=== PATIENT | female | born 1930 | race Caucasian/White ===

== ENCOUNTER 2017-01-29 17:42 | Inpatient (IN) | payer MEDICARE, OTHER ==
[~2017-01-29] VITALS: Ht 162.6 cm; Wt 45.7 kg
--- NOTE | ~2017-01-29 | OP ---
PATIENT NAME: MARY SNEED MEDICAL RECORD: [id number] :32 LOCATION:D.M2 D.2129 ADMISSION DATE:01/30/17 SURGEON: SHANTA VÁZQUEZ MD DATE OF OPERATION: 01/30/2017 PREOPERATIVE DIAGNOSIS: Right femoral neck fracture. POSTOPERATIVE DIAGNOSIS: Right femoral neck fracture. PROCEDURE PERFORMED: Right femoral neck fracture pinning. SURGEON: Royal Vázquez MD ANESTHESIA: General. CONDITION: She tolerated the procedure well, was transferred to the recovery room in stable condition. INDICATIONS: This is a pleasant 86-year-old female, who had a fall several days ago, presents with a nondisplaced right femoral neck fracture. We discussed the options and felt like it would be best to go ahead and pinned it. I discussed this with her family, they understood. We discussed blood loss, scar, pain, failure of the pinning, collapse of the femoral head and they understood and wished to proceed. OPERATIVE REPORT: The patient was taken to the operating room and placed in supine position. General anesthesia was obtained. She was placed on the fracture table with her right leg in the up and elevated position. The left leg in the down position, no traction or tension was placed bilaterally. C-arm was brought in and verified that we can see the AP and Lateral of the right hip. I then had her prepped in a standard fashion and drape was placed. She did have receive Ancef per protocol. I made a small incision laterally. This was taken down. Four pins were placed into her hip, 4 screws were placed, 3 of them are of washers. This had good apposition of the fracture, good contact and felt like she had maintained to good position. I therefore copiously irrigated and closed her IT band ____ with #1 Vicryl, then 2-0 Vicryl, then 3-0 Prolene, half inch Steri-Strips. She was awakened and transferred to recovery room in stable condition, having tolerated the procedure well. TRANSINT:[id number] Voice Confirmation ID: [id number] DOCUMENT ID: [id number] SHANTA VÁZQUEZ MD CC: [id number] DICTATION DATE: 01/30/17 1211 GLASS BELT SANDER: 01/30/17 1322 ADM IN [id number] [place] [address]
[2017-01-30] VITALS (7 sets, daily range): BP systolic 118–156; BP diastolic 63–89; BMI 16.6
[2017-01-30 06:06] LABS: BASOPHILS 0 % (0-2); EOSINOPHILS 1.7 % (0-7); HEMATOCRIT 32.9 % (36.0-48.0); HEMOGLOBIN 10.5 g/dL (12-16); IMMATURE GRANULOCYTES 0.4 % (0-5); LYMPHOCYTES 17.5 % (15-50); MCH 31.7 pg (26.0-34.0); MCHC 31.9 g/dL (31.0-37.0); MCV 99.4 fL (80.0-100.0); MEAN PLATELET VOLUME 9.7 fL (7.4-10.4); MONOCYTES 16.3 % (2-11); NEUTROPHILS 64.1 % (40-80); PLATELET COUNT 294 10x3/uL (130-400); RBC 3.31 10x6/uL (4.00-5.40); RDW 14.9 % (11.5-14.5); WBC 4.7 10x3/uL (4.8-10.8)
--- NOTE | 2017-01-30 06:08 | NUR ---
0100 PT ADMITTED TO ROOM 2128 VIA EMS FROM [facility]. ALERT/ORIENTED. ACCOMPANIED BY HER DAUGHTER. ADMISSION HISTORY AND ASSESSMENT INITIATED. HOME MEDS REVIEWED. PT IS CONFUSED, FORGETTING WHERE SHE IS, TIME AND SITUATION. TELLS NURSE SHE FELL IN THE STORE AND FAMILY MEMBER SAYS SHE FELL AT HOME. PT CURRENTLY LIVES WITH HER SPOUSE AND IN HOME CAREGIVERS. PT TRANSFERRED TO BED WITH NO DIFFICULTY. INSTRUCTED ON BED REST AND NPO UNTIL SEEN BY DR VÁZQUEZ THIS AM. 0300 PT RESTING, FAMILY X 1 AT BEDSIDE. NO DISTRESS. SR PER TELEMETRY. CPOC. 0500 CONTINUES TO SLEEP. HAVE ORDERED AM LABS FOR DR VÁZQUEZ TO HAVE FRESH LABS FOR IF HE DOES DO SURGERY TODAY. PT HAS PIV TO RIGHT HAND AND RIGHT CHEST WALL HEMOSPLIT FOR HER DIALYSIS DAYS. SHE LAST DIALYZED ON TUESDAY. CPOC. CALL LIGHT IN REACH.
[2017-01-30] MEDS ORDERED: ZANTAC150 MG PO (06:18)
[2017-01-30] MEDS ORDERED: PROTONIX40 MG PO (06:18)
[2017-01-30] MEDS ORDERED: LIPITOR20 MG PO (06:18)
[2017-01-30] MEDS ORDERED: METOPROLOL TART25 MG PO (06:19)
[2017-01-30] MEDS ORDERED: RANEXA500 MG PO (06:19)
[2017-01-30] MEDS ORDERED: BRILINTA90 MG PO (06:20)
[2017-01-30] MEDS ORDERED: RENVELA800 MG PO (06:20)
[2017-01-30] MEDS ORDERED: LASIX80 MG PO (06:21)
[2017-01-30 06:28] LABS: ALBUMIN 2.1 g/dL (3.4-5.0); ANION GAP 7.5 mmol/L (8-16); APTT 32.1 SECONDS (22.8-39.4); BILIRUBIN - TOTAL 0.45 mg/dL (0.2-1.3); CALCIUM 8.8 mg/dL (8.5-10.1); CARBON DIOXIDE 30.6 mmol/L (21.0-32.0); CREATININE - SERUM 2.1 mg/dL (0.6-1.3); INR 1.07 (0.85-1.17); POTASSIUM - SERUM 4.1 mmol/L (3.5-5.1); PROTEIN - SERUM 4.8 g/dL (6.4-8.2); PROTIME 13.7 SECONDS (11.6-15.0)
--- NOTE | 2017-01-30 07:00 | NUR ---
RECEIVED REPORT. ASSUMED CARE OF PATIENT. RESTING WITH EYES CLOSED. EASILY AROUSED. RESP EVEN AND UNLABORED. ORIENTED TO NAME AND SITUATION. NIECE AT BEDSIDE. DENIES NEEDS. REPORTS PAIN 3/10 TO RIGHT LEG. RIGHT LEG NOTED TO BE SHORTER AND INTERNALLY ROTATED WHEN LYING IN SUPINE POSITION. CALL LIGHT WITHIN REACH. DENIES NEEDS. NO DISTRESS.
--- NOTE | 2017-01-30 09:22 | NUR ---
CONSENTS SIGNED AND PLACED ON CHART.
--- NOTE | 2017-01-30 10:33 | NUR ---
PATIENT LEFT FOR SURGERY VIA BED AT THIS TIME. NO DISTRESS UPON LEAVING UNIT.
--- NOTE | 2017-01-30 12:47 | NUR ---
RECEIVED PATIENT BACK TO ROOM VIA BED. PATIENT WITH EYES CLOSED, EASILY AROUSED. 154/71. CALL LIGHT PLACED WITHIN REACH. BED TO LOWEST POSITION. BOX ALARM ATTACHED TO PATIENT. PERIPHERAL PULSES PATENT. NO DRAINAGE OR BLEEDING FROM DRESSING TO RIGHT HIP. PATIENT STATES SHE IS NOT HUNGRY AT THIS TIME. REMAINS SLEEPY FROM PAIN MEDICATION. NO DISTRESS.
--- NOTE | 2017-01-30 16:03 | NUR ---
EYES CLOSED. EASILY AROUSED. FAMILY AT BEDSIDE. PERIPHERAL PULSES 2+, NO DRAINAGE OR BLOOD NOTED TO DRESSING. CALL LIGHT WITHIN REACH. NO DISTRESS.
--- NOTE | 2017-01-31 01:36 | NUR ---
0100 CALLED TO PT'S ROOM BY COTTON WEIGHER OPERATOR, NOTED THAT HER IV WAS ALMOST OUT. ATTEMPTED TO SALVAGE EXISTING IV, BUT IT WAS TOO TWISTED AND ALSO THEIR WAS EVIDENCE OF INFILTRATION INTO THE SKIN SURROUNDING THE SITE. REMOVED IV. ATTEMPTS X 3 BY THIS NURSE WITH NO SUCCESS TO OBTAIN ANOTHER IV. WANTING TO GIVE PT NEEDED IV PAIN MED FOR HER RIGHT HIP. CALLED SECOND NURSE, LISSET LUONG AND SHE ATTEMPTED AND GOT A WORKING IV TO RIGHT A/C ON 3RD ATTEMPT. ADMINISTERED BUPRENEX 0.1MG AT 0130. POSITIONED PT ON HER LEFT SIDE AND ENCOURAGED HER TO TRY AND SLEEP. IVF AT KVO. WILL MONITOR. CALL LIGHT IN REACH. ALARM BOX ATTACHD TO PT.WILL MONITOR.
[2017-01-31 03:23] VITALS: BP 123/60
[2017-01-31 06:17] LABS: HEMATOCRIT 36.4 % (36.0-48.0); HEMOGLOBIN 11.1 g/dL (12-16); MCH 30.8 pg (26.0-34.0); MCHC 30.5 g/dL (31.0-37.0); MCV 101.1 fL (80.0-100.0); MEAN PLATELET VOLUME 9.8 fL (7.4-10.4); RBC 3.6 10x6/uL (4.00-5.40); RDW 14.7 % (11.5-14.5)
[2017-01-31 06:26] LABS: WBC 6.2 10x3/uL (4.8-10.8)
--- NOTE | 2017-01-31 07:30 | NUR ---
ASSESSMENT COMPLETED.TELEMERTY SHOWS SR. PT IS RAM[place]. RT HIP WITH DRSG DRY AND INTACT. PT HAS A RIGHT CHEST HEMISPLIT AND A IV TO RIGHT AC. PT IS DISORIENTED. FAMILY AT BEDSIDE. BOX ALARM ON.
[2017-01-31 08:33] VITALS: BP 141/48
[2017-01-31 10:02] LABS: ANION GAP 13.5 mmol/L (8-16); CARBON DIOXIDE 27.5 mmol/L (21.0-32.0); CREATININE - SERUM 2.4 mg/dL (0.6-1.3)
--- NOTE | 2017-01-31 10:32 | NUR ---
TO DIAYLSIS PER BED
--- NOTE | 2017-01-31 11:00 | NUR ---
TO DIAYSIS IN STABLE CONDITION
--- NOTE | 2017-01-31 14:36 | NUR ---
PT HAD HEMODIALYSIS IN SUITE, TRANSFERRED VIA BED. PT AWAKE, BUT EXTREMELY CONFUSED. MADE A FEW ATTEMPTS TO ORIENT HER. ACCESSED R CHEST HEMISPLIT USING ASEPTIC TECHNIQUE. GOOD BLOOD FLOW WITH CATH. START TIME 1036, STOP TIME 1340. DECREASED UF GOAL PT B/P DROPPING. TOTAL UF 1000.
[2017-01-31 15:03] VITALS: Ht 162.6 cm; Wt 45.7 kg
[2017-01-31 16:00] VITALS: BP 133/53
--- NOTE | 2017-01-31 19:35 | NUR ---
RECIEVED SHIFT REPORT. PT IS LYING IN BED. PT IS ALERT AND ORIENTED BUT DOES HAVE SOME CONFUSION TO PLACE AND SITUATION. HEMISPLIT TO RIGHT CHEST PATENT. IV TO RIGHT AC PATENT AND SALINE LOC. DRESSING TO RIGHT HIP C/D/I. PT STATES PAIN IS 5/10. NO NEEDS ARE VERBALIZED AT THIS TIME. VISITOR IS AT THE BEDSIDE. WILL CONTINUE TO MONITOR. SIDE RAILS ARE UP X 2. BED IS IN LOWEST POSITION. BOX ALARM IS ON FOR SAFETY. CALL LIGHT IS WITHIN REACH.
--- NOTE | 2017-01-31 19:45 | NUR ---
LYING QUIETLY. FAMILY AT BEDSIDE. WILL MONITOR
[2017-01-31 20:10] VITALS: BP 91/43
--- NOTE | 2017-01-31 21:31 | NUR ---
SHIFT ASSESSMENT COMPLETED. NIGHT MEDS GIVEN WITH NO PROBLEMS. NO NEEDS ARE VOICED. VISITOR AT BEDSIDE. WILL MONITOR. SIDE RAILS X 2. BED LOW. BOX ALARM ON. CALL LIGHT IN REACH.
[2017-02-01] VITALS (7 sets, daily range): BP systolic 97–125; BP diastolic 45–78
[2017-02-01 05:57] LABS: HEMATOCRIT 35.1 % (36.0-48.0); HEMOGLOBIN 10.7 g/dL (12-16); MCH 30.7 pg (26.0-34.0); MCHC 30.5 g/dL (31.0-37.0); MCV 100.9 fL (80.0-100.0); MEAN PLATELET VOLUME 9.8 fL (7.4-10.4); RBC 3.48 10x6/uL (4.00-5.40); RDW 14.7 % (11.5-14.5); WBC 6.6 10x3/uL (4.8-10.8)
[2017-02-01 06:15] LABS: ANION GAP 9.7 mmol/L (8-16); CALCIUM 8.4 mg/dL (8.5-10.1); CARBON DIOXIDE 31.8 mmol/L (21.0-32.0); CREATININE - SERUM 1.9 mg/dL (0.6-1.3)
[2017-02-01 06:23] LABS: POTASSIUM - SERUM 3.5 mmol/L (3.5-5.1)
[2017-02-01 08:20] LABS: HEPATITIS C ANTIBODY <0.1 (0.0-0.9)
--- NOTE | 2017-02-01 08:21 | NUR ---
AM ROUNDS - PT IS AWAKE WITH FEMALE FAMILY MEMBER AT BEDSIDE. C/O RIGHT HIP PAIN. BOX ALARM ATTACHED AND WORKING. MONITOR SHOWING SR, HR 98. WILL CONTINUE TO MONITOR.
--- NOTE | 2017-02-01 12:53 | NUR ---
Patient Name: MARY SNEED Admission Status: Elective Accout number: [id number] Admission Date: 01-30-2017 : 1930 Admission Diagnosis: Attending: [place] Current LOS: 2 Anticipated DC Date: TO BE DETERMINED Planned Disposition: Inpatient Rehab Primary Insurance: MEDICARE A & B PLANNED EXTERNAL PROVIDER: [facility] INPATIENT REHAB Discharge Planning Comments: * Is the patient Alert and Oriented? Yes 0 * How many steps to enter\\exit or inside your home? NONE 0 * [facility] [place] [facility] * [facility] [place] [facility] * Preadmission Environment Home with Family 0 * ADLs Partial Dependent 0 * Partial ADLs (Assistance needed) Bathing Dressing Eating Medication Management Toileting 0 * Equipment Cane Oxygen Wheelchair 0 * Other Equipment HOME AND PORTABLE OXYGEN [facility] - MEDICAL EQUIPMENT PROVIDER 0 * List name and contact numbers for known caregivers / representatives who currently or will assist patient after discharge: DANIELE ROSS/LIGIA, 0 * Community resources currently utilized Other Private Duty Care 0 * Please name any agencies selected above. OUTPATIENT DIALYSIS, [facility], 1130, MEDICAID TRANSPORTATION ($15 PER TRIP) PRIVATE PAY 24 HOURS CAREGIVERS IN HOME 0 * Additional services required to return to the preadmission environment? Yes * Can the patient safely return to the preadmission environment? Yes 0 * Has this patient been hospitalized within the prior 30 days at any hospital? No 0 CM MET WITH PT IN ROOM TO DISCUSS DISCHARGE PLANNING AND NEEDS. PT REPORTS LIVING AT HOME DEPENDENT ON CAREGIVERS ARRANGED BY HALLIE. PT ADVISED CM TO SPEAK TO HALLIE REGARDING DISHARGE PLANNING HALLIE IS "THE EPITAXIAL REACTOR OPERATOR OF ME." IMPORTANT MESSAGE FROM MEDICARE PROVIDED AND DISCUSSED. CM CONTACT INFORMATION LET WITH PT AND CAREGIVER IN ROOM. CM RECEIVED CALL FROM HALLIE VIEIRA, . HALLIE REPORTS THAT PT HAS CANE, WHEELCHAIR, HOME AND PORTABLE OXYGEN [facility]. PT HAS PRIVATE PAY CAREGIVERS OR FAMILY AT ALL TIMES TO ASSIST WITH HER NEEDS AT HOME. PT TAKES THE MEDICAID TRANSPORTATION BUS TO AND FROM OUTPATIENT DIALYSIS AT [facility] IN [place], THEY CHARGE $15 PER TRIP. HALLIE REPORTS HAVING CAREGIVERS SITTING WITH PT AT THE HOSPITAL NOW AND PT HAS BEEN IN [facility] HOME REHAB IN THE PAST AND WANTED TO KNOW WHAT OTHER OPTIONS FOR REHAB PT MAY HAVE. CM DISCUSSED AVAILABILITY OF HOME HEALTH, REHAB SERVICES AND MEDICAL EQUIPMENT. HALLIE WOULD LIKE PT TO BE CONSIDERED FOR INPATIENT REHAB AT [facility]. FAMILY WILL PICK HER UP FOR DISCHARGE HOME. IMPORTANT MESSAGE FROM MEDICARE EXPLAINED. PT'S FAMILY WOULD LIKE PT CONSIDERED FOR INPATIENT REHAB AT [place]. CM WILL DISCUSS THIS POSSIBILITY WITH INPATIENT REHAB AND THE DOCTOR. CM TO FOLLOW AND ASSIST NEEDED. Manager Of Warehouse: Fan Guerrier
--- NOTE | 2017-02-01 16:05 | NUR ---
Rehab Note- Acute Rehab Prescreen Order received. Awaiting PT eval at this time. Have spoken with MAHESH Hernandez & stated the patient's POA would like for the patient to have an acute rehab stay prior to return home. Will follow the patient at this time. Thank you for this referral! Subha Thornton RN Clinical Liaison, [facility] Rehab/Sarah
--- NOTE | 2017-02-01 18:29 | NUR ---
PT IN BED ON LEFT SIDE. AWAKE. PT IS CONFUSED. BOX ALARM ON AND WORKING. WILL CONTINUE TO MONITOR
--- NOTE | 2017-02-01 19:45 | NUR ---
ASSESSMENT COMPLETE, PT RESTING ON LEFT SIDE, RESPERATIONS EVEN. IV TO RIGHT FOREARM WITH 1/2 NS AT KVO, SITE CLEAN AND AND DRY. FAMILY AT BED SIDE, BED LOW, CL IN REACH, WILL CONT TO MONITOR.
--- NOTE | 2017-02-01 23:31 | NUR ---
PROJECT MANAGER PROCESS DEVELOPMENT AT BEDSIDE FOR VS. NEEDS ADDRESSED AT THIS TIME. CALL LIGHT IN REACH. WILL CONT TO MONITOR.
[2017-02-02 03:42] VITALS: BP 131/69
--- NOTE | 2017-02-02 03:44 | NUR ---
RESTING WITH EYES CLOSED, RESPERATIONS EVEN, NO S/S DISTRESS NOTED.
--- NOTE | 2017-02-02 04:23 | NUR ---
PT CONFUSED OF SURROUNDINGS AND YELLING OUT FOR HELP. MOVED PT AND ALL OF HER BELONGINGS TO ROOM 2136 TO BE CLOSER TO THE NURSES STATION AND TO BE ABLE TO MONITOR CLOSER. NOTIFIED SWEET POTATO DISINTEGRATOR SOLOMAN AND EXPLAINED TO PT THAT FOR HER SAFETY WE ARE MOVING HER CLOSER TO THE FRONT OF THE UNIT.
[2017-02-02 06:52] LABS: BASOPHILS 0 % (0-2); EOSINOPHILS 1.2 % (0-7); HEMATOCRIT 29.8 % (36.0-48.0); HEMOGLOBIN 9.4 g/dL (12-16); IMMATURE GRANULOCYTES 0.2 % (0-5); LYMPHOCYTES 11.2 % (15-50); MCH 31.1 pg (26.0-34.0); MCHC 31.5 g/dL (31.0-37.0); MEAN PLATELET VOLUME 9.6 fL (7.4-10.4); MONOCYTES 12.1 % (2-11); NEUTROPHILS 75.3 % (40-80); PLATELET COUNT 321 10x3/uL (130-400); RBC 3.02 10x6/uL (4.00-5.40); RDW 14.4 % (11.5-14.5); WBC 5.6 10x3/uL (4.8-10.8)
[2017-02-02 07:00] LABS: MCV 98.7 fL (80.0-100.0)
[2017-02-02 07:05] LABS: ANION GAP 7.4 mmol/L (8-16); CALCIUM 8.7 mg/dL (8.5-10.1); CARBON DIOXIDE 32.6 mmol/L (21.0-32.0)
[2017-02-02 07:06] LABS: CREATININE - SERUM 2.4 mg/dL (0.6-1.3)
[2017-02-02 08:53] VITALS: BP 126/54
--- NOTE | 2017-02-02 10:49 | NUR ---
0715- AM ROUNDING- RECEIVED REPORT FROM CHIEF CLINICAL DIETITIAN NURSE TAMMY MERINO. PT IS CURRENTLY LAYING IN BED ON BACK WITH EYES OPEN RESTING. PT IS CONFUSED. ON MONITOR SHOWING SR, HR 69. DRESSING (CLEAN, DRY, AND INTACT) SEEN TO RIGHT HIP AREA. GIULIA HOSE SEEN TO LEFT LEG. RIGHT CHEST HEMOSPLIT SEEN. AVF SEEN TO LEFT ARM (RESERVE LEFT ARM). IV SEEN TO RIGHT FOREARM THAT HAS 1/2 NS RUNNING AT KVO (10CC). ON ROOM AIR. BEDREST ORDERED. NO NEED AT CURRENT TIME. WILL CONTINUE TO MONITOR AND CONTINUE WITH PLAN OF CARE.
[2017-02-02 12:48] VITALS: BP 113/49
--- NOTE | 2017-02-02 13:21 | NUR ---
Patient Name: MARY SNEED Encounter No: [id number] : 1930 Primary Insurance: MEDICARE A & B Anticipated DC Date: 02-02-2017 Planned Disposition: Inpatient Rehab External Planned Provider: [facility] DCP follow-up note: CM SPOKE TO PASTOR OF INPATIENT REHAB WHO REPORTS THEY CAN ACCEPT PT TODAY. CM SPOKE TO PT'S NIECE/POA, HALLIE QUIROZ, , WHO IS IN AGREEMENT WITH DISCHARGE TO REHAB TODAY AT [facility]. HALLIE WILL PROVIDE WHAT CLOTHING OR SUPPLIES PT MAY NEED, PLEASE FAX LIST TO HALLIE AT WORK, . CM NOTIFIED PASTOR OF INPATIENT REHAB. CHIPPER OPERATOR NURSE NOTIFIED. [facility] INPATIENT REHAB TO CONTACT MED 2 NURSE WITH ROOM NUMBER WHEN READY TO ACCEPT PT AND NURSE REPORT. Fan Guerrier, CASE MANAGEMENT
[2017-02-02] MEDS ORDERED: COLACE100 MG PO (13:58)
[2017-02-02] MEDS ORDERED: LOVENOX30 MG/0.3 SC (13:59)
--- NOTE | 2017-02-02 14:37 | NUR ---
CVL DRESSING CHANGED PER POLICY.
--- NOTE | 2017-02-02 14:58 | NUR ---
CALLED REPORT AND SPOKE WITH FEDE IN REHAB. GAVE REPORT. WILL CONTINUE TO MONITOR AND D/C PT TO REHAB ORDERED. WILL CONTINUE TO MONITOR.
--- NOTE | 2017-02-02 15:44 | NUR ---
D/C PT TO REHAB WITH IV TO RIGHT FOREARM INTACT. PT UNABLE TO SIGN D/C PAPERWORK DUE TO BEING CONFUSED. RIGHT CHEST HEMOSPLIT INTACT. HEART MONITOR RMEOVED AND RETURNED TO [place] WITH TELEMETRY.
== END 2017-02-02 15:47 | DRG 480 ==
LOC: D.M2 17:42
PROVIDERS: Internal Medicine; Internal Medicine Nephrology; ADMIT Orthopaedic Surgery Sports Medicine
PROC: 0QS604Z Reposition Right Upper Femur with Internal Fixation Device, Open Approach (ICD-10-PCS; principal; 2017-01-30 11:00)
PROC: 5A1D60Z (ICD-10-PCS; 2017-01-31)
DX: S72.001A Fracture of unspecified part of neck of right femur, initial encounter for closed fracture (principal); N18.6 End stage renal disease; I13.2 Hypertensive heart and chronic kidney disease with heart failure and with stage 5 chronic kidney disease, or end stage renal disease; W19.XXXA Unspecified fall, initial encounter; I50.9 Heart failure, unspecified; Z99.2 Dependence on renal dialysis; F03.90 Unspecified dementia, unspecified severity, without behavioral disturbance, psychotic disturbance, mood disturbance, and anxiety; D63.1 Anemia in chronic kidney disease

== ENCOUNTER 2017-02-02 15:38 | Inpatient (IN) | payer MEDICARE, OTHER ==
[~2017-02-02] VITALS: Ht 162.6 cm; Wt 36.9 kg
[~2017-02-02 15:38] MED LIST: BRILINTA90 MG PO; COLACE100 MG PO; LASIX80 MG PO; LIPITOR20 MG PO; LOVENOX30 MG/0.3 SC; METOPROLOL TART25 MG PO; PROTONIX40 MG PO; RANEXA500 MG PO; RENVELA800 MG PO; ZANTAC150 MG PO
[2017-02-02 18:59] VITALS: BP 117/55
--- NOTE | 2017-02-02 19:10 | NUR ---
OFF UNIT IN DIALYSIS.
--- NOTE | 2017-02-02 20:05 | NUR ---
RETURNED FROM DIALYSIS. GAVE PATIENT A WARMED BLANKET. FAMILY MEMBERS ARRIVED AND AFTER WARMING HER DINNER AND CHOPPING IT UP FOR HER THEY ASSISTED HER TO EAT AND TO MAKE HER MENU SELECTIONS.
[2017-02-02 21:16] VITALS: BP 117/55
--- NOTE | 2017-02-02 21:30 | NUR ---
ADMISSION ASSESSMENT AND HS MEDS COMPLETE. GAVE PATIENT NEWLY ORDERED ATIVAN 0.5MG PO FOR RESTLESSNESS MILD AGITATION DUE TO CONFUSION.
--- NOTE | 2017-02-02 21:45 | NUR ---
AFTER CALLING REALIZING THAT PATIENT'S GRANDDAUGHTER IS HER MPOA, CALLED HALLIE QUIROZ TO SEE IF SHE WANTED TO SIGN ADMISSION DOCUMENTS TELEPHONICALLY TONIGHT WITH 2 NURSES WITNESSING. DECLINED AND SAID SHE WILL SIGN THEM ALL TOMORROW.
--- NOTE | 2017-02-02 22:00 | NUR ---
PATIENT IN BED WITH COVERS THROWN OFF IF PLANNING ON ATTEMPTING OOB. RREMINDED HER SHE IS IN THE HOSPITAL FOR REHAB AFTE HER HIP SURGERY. PATIENT COVERED HERSELF UP AND ROLLED BACK OVER TO LEFT SIDELYING POSITION.
--- NOTE | 2017-02-02 22:45 | NUR ---
RESTING QUIETLY IN BED, ON LEFT SIDE. NO DISTRESS NOTED.
[2017-02-03] VITALS (7 sets, daily range): BP systolic 86–173; BP diastolic 58–82; Ht 162.6 cm; Wt 36.9 kg
--- NOTE | 2017-02-03 | NUR ---
RESTING QUIETLY IN BED ON RIGHT SIDE. NO DISCOMFORT NOTED.
--- NOTE | 2017-02-03 02:05 | NUR ---
RESTING IN BED ON BACK. NO DISTRESS EVIDENT.
--- NOTE | 2017-02-03 04:15 | NUR ---
ASSISTED PATIENT UP TO BSC SHE SAID SHE NEEDED TO URINATE. WAS UNABLE TO DO SO SHE HAD ALREADY BEEN INCONTINENT OF A LARGE AMOUNT OF URINE WHILE IN BED. CLEANSED PATIENT AND APPLIED FRESH PULL-UP BRIEF. REMOVED OLD BULKY DRESSING FROM STERI STRIPPED RIGHT HIP INCISION AND APPLIED FRESH BORDERED GAUZE DRESSING. NO CURRENT OR RECENT DRAINAGE FROM INCISION NOTED.
[2017-02-03 05:14] LABS: HEMATOCRIT 30.3 % (36.0-48.0); HEMOGLOBIN 9.9 g/dL (12-16); LYMPHOCYTES 23.8 % (15-50); MCH 31.7 pg (26.0-34.0); MCHC 32.7 g/dL (31.0-37.0); MCV 97.1 fL (80.0-100.0); MEAN PLATELET VOLUME 10.3 fL (7.4-10.4); NEUTROPHILS 64.3 % (40-80); PLATELET COUNT 327 10x3/uL (130-400); RBC 3.12 10x6/uL (4.00-5.40); RDW 15.8 % (11.5-14.5); WBC 6.4 10x3/uL (4.8-10.8)
--- NOTE | 2017-02-03 05:50 | NUR ---
RESTING QUIETLY IN BED AFTER RECENT BLOOD LAB REDRAW BY PHLEBOATMIST.
[2017-02-03 06:20] LABS: CALCIUM 8.8 mg/dL (8.5-10.1); CARBON DIOXIDE 31.7 mmol/L (21.0-32.0)
[2017-02-03 06:33] LABS: CREATININE - SERUM 1.7 mg/dL (0.6-1.3); POTASSIUM - SERUM 2.7 mmol/L (3.5-5.1)
--- NOTE | 2017-02-03 07:53 | NUR ---
SITTING UP EATING BREAKFAST. CALL LIGHT IN REACH
--- NOTE | 2017-02-03 07:56 | NUR ---
PATIENT ALERT/ORIENT TO SELF ONLY. CALL LIGHT WITHIN PATIENTS REACH. BED ALARM ON. DR. Malcom MCGRAW INTO SEE PATIENT. NEW ORDERS RECEIVED
--- NOTE | 2017-02-03 09:30 | NUR ---
PATIENT WET, INCONT OF URINE. PATIENT STATED SHE HAD TO PEE AGAIN. THIS NURSE HELPED PATIENT ONTO BEDSIDE COMMODE. PATIENT IS A TOTAL ASST ON ONE FROM BED TO COMMODE. PATIENT DID URINATE ON COMMODE. CLOTHES CHANGED BY THIS NURSE. REECE CARE GIVEN BY THIS NURSE. LINENS ON BED CHANGED BY THIS NURSE. PATIENT HELPED BACK INTO BED. PATIENT STATES SHE DOES NOT WANT TO EAT BREAKFAST. BREAKFAST LEFT AND SET UP IN FRONT OF PATIENT.
--- NOTE | 2017-02-03 12:00 | NUR ---
PATIENT SITTING UP IN CHAIR AT BEDSIDE TO EAT LUNCH. PATIENT IS VERY SLEEPY. THIS NURSE TRIED TO FEED PATIENT LUNCH. PATIENT WOULD ONLY TAKE A FEW BITES OF FOOD. WOUND NOT DRINK ANY LIQUIDS. THIS NURSE PUT PATIENT BACK TO BED.
--- NOTE | 2017-02-03 13:43 | NUR ---
PATIENTS NIECE HERE TO SIGN ADMISSION PAPER WORK.
--- NOTE | 2017-02-03 14:29 | NUR ---
PASTOR LEON PHLEBOTOMY MANAGER INTO SEE PATIENT. NEW ORDERS RECIEVED
--- NOTE | 2017-02-03 17:50 | NUR ---
PATIENTS DINNER SET UP IN FRONT OF PATIENT AFTER PATIENT REARRAGNED IN BED. NOT EATTING. EYES SHUT. THIS NURSE ASKED IF SHE CAN FEED PATIENT, HELP HER WITH HER SUPPER. PATIENT STATED "HELL NO". WILL TRY AGAIN TO SEE IF PATIENT WILL WAKE UP AND EAT OR SHE WILL LET NURSE FEED HER
--- NOTE | 2017-02-03 19:44 | NUR ---
PT RECEIVED IN BED WITH EYES CLOSED AND CHEST RISING. EASILY AROUSED TO VERBAL STIMULI. COMPLAINTS OF PAIN OR OTHER NEEDS NOTED AT THIS TIME. CALL LIGHT IN REACH. WILL CONTINUE TO OBSERVE.
--- NOTE | 2017-02-03 22:57 | NUR ---
PT IN BED WITH EYES CLOSED. RECIEVED SCHEDULED MEDICATIONS PER DEC. REQUEST ASSISTANCE TO BEDSIDE COMMODE. WHEN TRANSFERING TO COMMODE PT COMPLAINS OF PAIN. WHEN COMPLETE AND RETURNED TO BED PT STATES PAIN LEVEL 9/10 WITH PRN PAIN MEDICATION GIVEN WITH SCHEDULED MEDICATIONS. CONFUSED OF TIME AT THIS TIME. IN BED WITH EYES CLOSED AND CHEST RISING. CALL LIGHT IN REACH. WILL CONTINUE TO OBSERVE.
[2017-02-04 00:02] VITALS: BP 129/60
--- NOTE | 2017-02-04 01:50 | NUR ---
PT IN BED WITH EYES CLOSED AND CHEST RISING. NO SIGN/SYMPTOMS OF DISTRESS NOTED AT THIS TIME. CALL LIGHT IN REACH. WILL CONTINUE TO OBSERVE.
--- NOTE | 2017-02-04 03:57 | NUR ---
PT IN BED WITH EYES CLOSED AND CHEST RISING. CALL LIGHT PUSHED AND ASKED FOR REORIENTATION OF BED FUNCTIONS AND ASSIST TO BEDSIDE COMMODE. URINARY OUTPUT ONLY NOTED. ASSISTED BACK TO BED WITH MODERATE ASSIST. NO OTHER NEEDS MADE KNOWN. CALL LIGHT IN REACH. WILL CONTINUE TO OBSERVE.
[2017-02-04 06:14] VITALS: BP 128/64
--- NOTE | 2017-02-04 06:57 | NUR ---
PT IN BED WITH EYES CLOSED AND CHEST RISING AT THIS TIME. RECEIVED AM MEDICATIONS AND TOLERATED WELL. NO CONCERNS MADE KNOWN. CALL LIGHT IN REACH.
[2017-02-04 08:47] VITALS: BP 134/80
--- NOTE | 2017-02-04 11:55 | NUR ---
PATIENT ADMITTED TO REHAB FROM ACUTE FLOOR. DR. YISEL MONTANA IS PATIENT PCP , DR. VÁZQUEZ IS ORTHO. PATIENT USES [employer] IN [place] FOR HER DME. . SHE HAS DIALYSIS AT [facility] ON . SHE HAS O2, WHEELCHAIR AND A CANE. SHE ALSO HAS 24HOUR CARE AT HOME WITH HER SPOUSE. HER POA IS HALLIE QUIROZ [phone]. WILL CONTINUE TO FOLLOW WITH PATIENT
[2017-02-04 18:53] VITALS: BP 144/68
--- NOTE | 2017-02-04 18:58 | NUR ---
PT HAS HAD AN UNEVENTFUL DAY TODAY. SHE HAS BEEN ALERT AND CONFUSED. PT WENT TO DIALYSIS THIS AFTERNOON.
--- NOTE | 2017-02-04 19:35 | NUR ---
PT. IN BED WITH HOB UP FOR COMFORT WITH EYES CLOSED AND RESP. EVEN. PT. AWAKENS EASILY FOR ASSESSMENT. NO VOICED NEEDS AT THIS TIME. ASSISTED WITH REPOSITIONING AND CALL LIGHT WITHIN REACH.
--- NOTE | 2017-02-04 23:06 | NUR ---
PT. IN BED WITH HOB UP FOR COMFORT LYING ON HER LEFT SIDE. EYES CLOSED AND RESP. DEEP AND EVEN. CALL LIGHT WITHIN REACH.
[2017-02-05 00:15] VITALS: BP 133/62
--- NOTE | 2017-02-05 03:02 | NUR ---
PT. IN BED WITH HOB UP FOR COMFORT WITH EYES CLOSED AND RESP. EVEN. PT. AWAKENS EASILY I DISCONNECT HER IV AND FLUSH/LOCK IT. GAVE PT. DRINK OF WATER AT HER REQUEST. PT. HAS NO OTHER VOICED NEEDS. CALL LIGHT WITHIN REACH.
--- NOTE | 2017-02-05 03:03 | NUR ---
PT. IN BED LYING ON HER LEFT SIDE WITH HOB UP FOR COMFORT. EYES CLOSED AND RESP. EVEN. CALL LIGHT WITHIN REACH.
[2017-02-05 06:38] VITALS: BP 115/63
[2017-02-05 07:00] VITALS: BP 129/62
--- NOTE | 2017-02-05 07:00 | NUR ---
PT WAS RECEIVED IN BED AWAKE AND ORIENTED ONLY TO SELF AT THE BEGINNING OF THIS SHIFT. STABLE CONDITION OBSERVED. RT. FOREARM SL. NO SIGNS OR VOICED NEEDS AT THIS TIME. WILL BE MONITORING HER AND ASSISTING PRN WITH ADL'S. CALL LIGHT IS IN REACH.
[2017-02-05 15:19] VITALS: BP 123/62
--- NOTE | 2017-02-05 18:11 | NUR ---
PT HAD TO HAVE A NORCO AT NOON TODAY FOR COMPLAINT OF HER RT. HIP AFTER DOING THERAPY. PT. HAD TO BE GIVEN AN ATIVAN AT 1545 TODAY FOR BEING UPSET OVER THINKING HER NIECE HAD TAKEN ALL OF HER FURNITURE FROM HER HOUSE THAT SHE IS IN NOW. SHE THINKS THE HOSPITAL IS HER HOUSE AND HER FURNITURE IS MISSING. SHE IS COMPLETELY DELUSIONAL. THE NIECE WANTS THIS [facility] BY A PSYCHYATRIST. SHE ATE HER SUPPER THAT HER NIECE BROUGHT HER AND WENT ON TO BED AND WENT ASLEEP. MONITORING HER AND SHE IS RESTING SOUNDLY NOW.
[2017-02-05 19:00] VITALS: BP 118/59
--- NOTE | 2017-02-05 23:15 | NUR ---
PT RESTING, EYES CLOSED. BED LOW. CL IN REACH.
[2017-02-06 01:25] VITALS: BP 122/49
--- NOTE | 2017-02-06 01:25 | NUR ---
PT RESTING, EYES CLOSED. BED LOW. CL IN REACH.
--- NOTE | 2017-02-06 03:12 | NUR ---
PT RESTING, EYES CLOSED. BED LOW. CL IN REACH.
--- NOTE | 2017-02-06 03:13 | NUR ---
PT HS MEDS ADMINISTERED. PT REQ AND REC'D PRN ATIVAN AND PAIN MEDICATION. WCTM. BED LOW. CL IN REACH.
[2017-02-06 06:04] VITALS: BP 110/53
--- NOTE | 2017-02-06 07:00 | NUR ---
PT WAS RECEIVED IN BED WITH EYES CLOSED AT THE BEGINNING OF THIS SHIFT. NO SIGNS OF ANY DISCOMFORT OR DISTRESS. RESPIRATIONS EASY AND UNLABORED. CALL LIGHT IS IN HER REACH. 02 PER NC GOING AT 2L/MIN. HOB ELEVATED TO 35%. WILL BE MONITORING HER AND ASSISTING PRN ASSIST WITH ADL'S.
[2017-02-06 10:19] VITALS: BP 116/59
--- NOTE | 2017-02-06 18:41 | NUR ---
MISTAKE MADE ON THE LAST ENTRY NOTE. PT DOES NOT WEAR 02. SHE IS BREATHING ROOM AIR. PT. WAS GOTTEN UP TO WHEELCHAIR MIDMORNING. SHE ASKED FOR A PAIN PILL AROUND 10:50AM AND RECEIVED A NORCO 5MG AT THAT TIME. HER NIECE CAME FOR A VISIT BEFORE LUNCH. SHE ATE HER LUNCH AND WENT BACK TO BED FOR A NAP. SHE CONTINUES TO BE STABLE AND CALM.
--- NOTE | 2017-02-06 19:45 | NUR ---
PT BED LINENS AND CLOTHING CHANGED DUE TO INCONTINENCE OF URINE. PT ASSISTED TO BR WHERE SHE VOIDED CONCENTRATED URINE. PT BACK IN BED AND IS VERY UPSET THAT "TANO" ISN'T HERE. WCTM. BED LOW. CL IN REACH.
[2017-02-06 20:15] VITALS: BP 138/60
--- NOTE | 2017-02-06 20:40 | NUR ---
PT HS MEDS ADMINISTERED. PT DENIES NEEDS. BED LOW. CL IN REACH.
[2017-02-07 01:03] VITALS: BP 119/57
--- NOTE | 2017-02-07 01:22 | NUR ---
PT RESTING, EYES CLOSED. BED LOW. CLIN REACH.
[2017-02-07 06:05] VITALS: BP 141/65
[2017-02-07 07:18] LABS: BASOPHILS 0.2 % (0-2); EOSINOPHILS 1.1 % (0-7); HEMOGLOBIN 9.5 g/dL (12-16); IMMATURE GRANULOCYTES 0.3 % (0-5); LYMPHOCYTES 11.2 % (15-50); MCH 30.6 pg (26.0-34.0); MCHC 31.7 g/dL (31.0-37.0); MCV 96.8 fL (80.0-100.0); MEAN PLATELET VOLUME 9.9 fL (7.4-10.4); MONOCYTES 14.2 % (2-11); PLATELET COUNT 343 10x3/uL (130-400); RDW 13.8 % (11.5-14.5); WBC 6.3 10x3/uL (4.8-10.8)
[2017-02-07 07:29] LABS: CALCIUM 9.2 mg/dL (8.5-10.1); CARBON DIOXIDE 29.3 mmol/L (21.0-32.0)
[2017-02-07 07:59] LABS: ANION GAP 10.5 mmol/L (8-16); CREATININE - SERUM 2.4 mg/dL (0.6-1.3)
[2017-02-07 08:02] LABS: POTASSIUM - SERUM 2.8 mmol/L (3.5-5.1)
--- NOTE | 2017-02-07 08:45 | NUR ---
PATIENT WOKEN UP TO EAT BREAKFAST. PATIENT CALLED OUT IN PAIN WHEN PULLED UP IN BED ASST OF TWO. PRN PAIN MEDICATION GIVEN
--- NOTE | 2017-02-07 09:57 | NUR ---
DIALYSIS CORRDINATOR: PATHWAYS: [facility] Tue/Tue/Tue @ 10:30am. Medical records forwarded to the unit for their records. MAGI MCNULTY.
--- NOTE | 2017-02-07 09:57 | NUR ---
DR. Malcom MCGRAW INTO SEE PATIENT. NEW ORDERS RECEIVED
--- NOTE | 2017-02-07 10:12 | NUR ---
OCCUPATIONAL THERAPIST WORKING WITH PATIENT. HELPED PATIENT WITH SHOWER
[2017-02-07 11:49] VITALS: BP 121/54
--- NOTE | 2017-02-07 14:45 | NUR ---
DIALYSIS CLINIC CALLED AND STATED THAT WE COULD BRING PATIENT DOWN FOR DIALYSIS TREATMENT. REQUESTED PATIENT BE BROUGHT DOWN IN A BED. PATIENT TAKEN DOWN TO DIALYSIS IN BED ASST OF TWO FOR MOVING OF THE BED. CHART BROUGHT WITH PATIENT
--- NOTE | 2017-02-07 18:17 | NUR ---
EATING SUPPER. CALL LIGHT IN REACH
[2017-02-07 18:23] VITALS: BP 116/58
--- NOTE | 2017-02-07 18:33 | NUR ---
PATIENT BACK FROM DIALYSIS CLINIC. IN ROOM. HELPED UP IN BED TO EAT SUPPER.
[2017-02-07 19:18] VITALS: BP 121/54
--- NOTE | 2017-02-07 21:10 | NUR ---
PT REQ AND REC'D PRN PAIN MEDICATION AT THIS TIME WITH HS MEDS. PT ALSO GIVEN PRN ATIVAN FOR ANXIETY. PT HAS BEEN YELLING OUT "HELLO, HELLO. I'M ALL ALONE. HELP ME." ORIENTED PT TO PLACE AND SITUATION. PT DENIES FURTHER NEEDS. WCTM. BED LOW. CL IN REACH.
--- NOTE | 2017-02-07 23:49 | NUR ---
PT RESTING, EYES CLOSED. BED LOW. CL IN REACH.
[2017-02-08 00:35] VITALS: BP 112/57
[2017-02-08 05:53] VITALS: BP 130/68
--- NOTE | 2017-02-08 07:00 | NUR ---
PT WAS RECEIVED IN BED WITH EYES CLOSED AT THE BEGINNING OF THIS SHIFT. STABLE CONDITION OBSERVED. VITAL SIGNS; TEMP. 98.0, PULSE 87, RESP. 16, B/P 130/68, 02SAT. 98% ON ROOM AIR. NO SIGNS OF ANY DISCOMFORT OR DISTRESS SEEN. WILL BE MONITORING HER AND ASSISTING PRN WITH ADL'S. CALL LIGHT IS IN HER REACH.
[2017-02-08 08:20] LABS: APPEARANCE CLEAR (CLEAR); BACTERIA MODERATE /hpf (NONE SEEN); BILIRUBIN NEGATIVE (NEGATIVE); COLOR YELLOW (YELLOW); EPITHELIAL CELLS 0-5 /hpf (0-5); GLUCOSE NEGATIVE (NEGATIVE); KETONE NEGATIVE (NEGATIVE); LEUKOCYTE ESTERASE 2+ (NEGATIVE); NITRITE NEGATIVE (NEGATIVE); PROTEIN 1+ mg/dL (NEGATIVE); RED CELLS - URINE 0-5 /hpf (0-5); UROBILINOGEN NORMAL (NORMAL)
[2017-02-08 08:21] LABS: MUCUS <1+ /lpf (NONE SEEN)
[2017-02-08 08:54] LABS: BASOPHILS 0.2 % (0-2); EOSINOPHILS 0.8 % (0-7); HEMATOCRIT 30.3 % (36.0-48.0); HEMOGLOBIN 9.3 g/dL (12-16); IMMATURE GRANULOCYTES 0.2 % (0-5); LYMPHOCYTES 9.3 % (15-50); MCH 30.9 pg (26.0-34.0); MCHC 30.7 g/dL (31.0-37.0); MEAN PLATELET VOLUME 9.7 fL (7.4-10.4); MONOCYTES 10.2 % (2-11); NEUTROPHILS 79.3 % (40-80); PLATELET COUNT 355 10x3/uL (130-400); RBC 3.01 10x6/uL (4.00-5.40); RDW 13.8 % (11.5-14.5); WBC 6.6 10x3/uL (4.8-10.8)
[2017-02-08 08:56] LABS: MCV 100.7 fL (80.0-100.0)
[2017-02-08 09:03] LABS: ANION GAP 6.9 mmol/L (8-16); CALCIUM 9.5 mg/dL (8.5-10.1); CARBON DIOXIDE 34.4 mmol/L (21.0-32.0); CREATININE - SERUM 1.8 mg/dL (0.6-1.3)
[2017-02-08 09:05] LABS: POTASSIUM - SERUM 4.3 mmol/L (3.5-5.1)
--- NOTE | 2017-02-08 09:41 | RHP ---
PATIENT: MARY SNEED MEDICAL RECORD: [id number] ACCOUNT: [id number] LOCATION:[facility] [id number] : 32 ADMISSION DATE: 02/02/17 REHABILITATION HISTORY AND PHYSICAL EXAMINATION POST ADMISSION PHYSICIAN EXAMINATION DATE OF ADMISSION TO REHAB: 02/02/2017 ADMITTING DIAGNOSIS: Right femoral neck fracture, status post repair. HISTORY OF PRESENT ILLNESS: The patient is an 86-year-old female patient, who presents to rehab secondary to a right femoral neck fracture. She has got a history of end-stage renal disease, CHF and dementia. She chronically dialyzes on Tuesday, Tuesday and Tuesday. She is on hemodialysis for 3 years. She apparently fell at home prior to admit. She has pain in her right hip that is tender and increased with range of motion. She was able to walk prior to this fall, but is unable to ambulate. On admission, x-ray showed a nondisplaced right femoral neck fracture. After being cleared by nephrology, she went to the OR for right femoral neck pinning. Previously, she lived with her and was moderately independent with rolling walker. She is pleasantly confused, but follows commands. Currently, she is mod to max assist with ADLs and mobility. Plans to return home with her and the caregiver after rehab. She does have a left upper extremity fistula. She has poor balance and stability and will definitely need to work on this during her rehab stay. COMORBIDITIES: Include status post right femoral neck pinning, end-stage renal disease, hemodialysis, hypokalemia, CHF, hypertension, coronary artery disease, osteopenia. She has got a history of PTCA with stent placement in the past, history of NC, cecal cancer, anemia, frequent falls and dementia. PAST MEDICAL HISTORY: Significant for dementia. She has got a history of hypertension, NC in the past, coronary artery disease and history of cecal cancer. PAST SURGICAL HISTORY: Includes hysterectomy, cholecystectomy, carpal tunnel release and stent placement. ALLERGIES: No known drug allergies. CURRENT MEDICATIONS: Include Pepcid 20 mg daily, Protonix 40 mg daily. She is on Lovenox 30 mg subQ daily, Lipitor 20 mg daily, Ativan 0.5 mg q.6 hours p.r.n., Seroquel 25 mg b.i.d., Brilinta 90 mg b.i.d., Renagel 800 mg t.i.d. with meals, Ranexa 500 mg b.i.d., Lopressor 25 mg b.i.d., furosemide 80 mg b.i.d., Colace 100 mg b.i.d., and polyethylene glycol 17 grams in 8 ounces of water daily. HABITS: No alcohol or tobacco use. FAMILY HISTORY: Noncontributory. SOCIAL HISTORY: Once again, the patient hopes to return back home with her and caregiver. REVIEW OF SYSTEMS: GENERAL: Does complain of little weakness. HISTORY AND PHYSICAL [id number] MARY SNEED HEENT: Denies cold, cough, or congestion. CARDIOVASCULAR: Denies chest pain. PHYSICAL EXAMINATION: VITAL SIGNS: Stable, afebrile. GENERAL: A thin, elderly female, in no acute distress, alert upon exam. HEENT: Normocephalic, atraumatic. Mucosa moist. TMs appear shiny and mobile. NECK: Supple, with no lymphadenopathy. LUNGS: Clear at this time. HEART: Regular rate and rhythm. ABDOMEN: Benign. EXTREMITIES: Consistent with hip surgery. NEUROLOGIC: Consistent with dementia. She has some confusion, but is easily redirected. LABORATORY DATA: Her white count is 6.4, H&H 9.9 and 30.3 and platelet count 327. Admit sodium 139, potassium 2.7, BUN and creatinine of 23 and 1.7, blood sugar is noted to be 99. ASSESSMENT: This is an 86-year-old female patient, who presents secondary to right hip fracture, status post pinning of this. The patient has potential to make improvement. We instituted the following multidisciplinary therapies including, but not limited to physical, occupational, respiratory, speech, nutritional services, prosthetics and orthotics. Given her complex condition and risk for more complications, rehabilitation services cannot be provided at a low level of care such as a jail facility. PLAN: 1. Admit to [facility] rehab for intensive inpatient therapy to include the following disciplines: A. Physical therapy to improve gait, all transfer skills and bed mobility to a modified independent level. B. Occupational therapy to improve activities of daily living to a modified independent level. C. Case management to assist with discharge planning and placement options. D. Nutrition to assist with nutritional needs. E. Rehabilitation nursing to assist in monitoring the patient's underlying medical conditions and to assist with any type of bowel or bladder management. 2. The patient's current medication and medical care will be continued. 3. The patient will be placed on standard fall precautions. 4. We will watch her H&H closely. 5. We will discuss this patient during care team staff meeting this week. TRANSINT:[id number] Voice Confirmation ID: [id number] DOCUMENT ID: [id number] HISTORY AND PHYSICAL [id number] MARY SNEED SCOTT MD at 0941 CC: [id number] DICTATION DATE: 02/03/17 0744 CLOUD SECURITY ARCHITECT: 02/03/17 0856 ADM IN [facility] [address] [place] [address]
[2017-02-08 09:51] VITALS: BP 130/68
[2017-02-08 12:05] VITALS: BP 126/53
--- NOTE | 2017-02-08 13:05 | NUR ---
PT REQUESTED A PAIN PILL WHEN IN THERAPY THIS MORNING. SHE RECEIVED A NORCO 5MG TAB AT 11:45AM. SHE WAS PUT BACK TO BED AFTER THE MORNING THERAPY. SHE HAS BEEN RESTING WELL.
--- NOTE | 2017-02-08 13:29 | NUR ---
Nutrition Follow Up: Pt was asleep at the time of RD visit. Interview deferred. Pt is eating 51% meal avg on a regular diet. She is receiving Ensure with meals. Wt loss 9# since admit - likely r/t fluid. +BM 02/03/17. Labs reviewed. Meds noted including Lasix. Pt with fair po intake. Rec continue current diet. Rec consider an appetite stimulant. RD will continue to monitor pt progress.
[2017-02-08 18:25] VITALS: BP 124/63
--- NOTE | 2017-02-08 18:33 | NUR ---
PT HAD A SHOWER THIS AFTERNOON AFTER HAVING AN INCONTINENT EPISODE OF BOWEL AND URINE. BED LINENS CHANGED TOO.
--- NOTE | 2017-02-08 19:10 | NUR ---
ASSESSMENT PER FLOW SHEET, RIGH HEMOSPLIT INTACT WITH NO REDNESS OR EDEMA, PT ORIENTED TO PLACE AND TIME, DINNER TRAY REMOVED, FRESH H20 SERVED, PT DENIES NEEDS
--- NOTE | 2017-02-08 20:20 | NUR ---
PT RESTING WITH EYES CLOSED, RESP QUIET, NO DISTRESS NOTED, LEFT UNDISTURBED AT THIS TIME
--- NOTE | 2017-02-08 20:55 | NUR ---
PT AWAKE, C/O PAIN, PT AGITATED, WILL ADM PAIN MED AND ATIVAN PER MD ORDERS
--- NOTE | 2017-02-08 20:59 | NUR ---
ADM 2100 MEDS, PAIN MED AND ATIVAN PO PER MD ORDERS, SEE EMAR
--- NOTE | 2017-02-08 21:10 | NUR ---
ADM LOPRESSOR PO PER MD ORDERS, SEE EMAR, PT C/O FEET BEING COLD, BLUE SOCKS APPLIED, PT COVERED UP, PT DENIES FURTHER NEEDS
--- NOTE | 2017-02-08 22:09 | NUR ---
PT RESTING WITH EYES CLOSED, RESP QUIET, NO DISTRESS NOTED, LEFT UNDISTURBED AT THIS TIME
[2017-02-09 00:28] VITALS: BP 105/67
--- NOTE | 2017-02-09 00:28 | NUR ---
PT RESTING WITH EYES CLOSED, AROUSES TO SOFT VERBAL STIMULATION, VS OBTAINED, PT DENIES NEEDS OR PAIN
--- NOTE | 2017-02-09 00:41 | NUR ---
BED ALARM GOING OFF, THIS RN TO ROOM, PT TRYING TO GET OUT OF BED, ENC PT TO LAY BACK DOWN, ORIENED PT TO PLACE AND TIME
--- NOTE | 2017-02-09 02:06 | NUR ---
PT RSTING WITH EYES CLOSED, RESP QUIET, NO DISTRESS NOTED, LEFT UNDISTURBED AT THIS TIME
--- NOTE | 2017-02-09 02:47 | NUR ---
PT AWAKE, MOANING, ADM NORCO PO PER MD ORDERS, SEE EMAR, PT WET, PT CLEANED UP WITH WET WARM WIPES, BEDDING CHANGED, ADULT GARMENT AND SCRUB SHIRT PLACED ON, PT POSITIONED IN BED, DENIES FURTHER NEEDS
--- NOTE | 2017-02-09 04:20 | NUR ---
PT RESTING WITH EYES CLOSED, RESP QUIET, NO DISTRESS NOTED, LEFT UNDISTURBED AT THIS TIME
[2017-02-09 06:04] VITALS: BP 111/55
--- NOTE | 2017-02-09 06:04 | NUR ---
PT RESTING WITH EYES CLOSED, AROUSES TO SOFT VERBAL STIMULATION, ADM 0600 MEDS PER ORDERS, SEE EMAR, PT WET, BEDDING CHANGED, CLEAN GARMENT APPLIED, FRESH H20 SERVED, VS OBTAINED, PT DENIES FURTHER NEEDS
--- NOTE | 2017-02-09 07:18 | NUR ---
SHIFT REPORT TO DAY SHIFT
--- NOTE | 2017-02-09 08:00 | NUR ---
PATIENT IS ALERT TO SELF. CONFUSED. BED ALARM ON. CALL LIGHT WITHIN REACH. BREAKFAST TRAY SET UP FOR PATIENT. CARTONS OPENED AND FOOD CUT UP FOR PATIENT. PATIENT VOICES NO NEEDS AT THIS TIME
--- NOTE | 2017-02-09 08:38 | NUR ---
SITTING UP IN BED EATING BREAKFAST.
--- NOTE | 2017-02-09 10:44 | NUR ---
PATIENT IN REHAB ROOM. WORKING WITH OCCUPATIONAL THERAPIST. DENIES ANY PAIN/DISC AT THIS TIME
[2017-02-09 11:51] VITALS: BP 120/65
--- NOTE | 2017-02-09 12:45 | NUR ---
PATIENT TAKEN DOWN TO DIALYSIS CLINIC IN BED BY THIS NURSE AND NURSES AID.
--- NOTE | 2017-02-09 14:12 | NUR ---
CARE TEAM MEETING: PATIENT PLANS ARE FOR PATIENT TO RETURN HOME WHEN DISCHARGED. PATIENT TENATIVE DISCHARGE DATE IS 02/18/17. WILL CONTINUE TO FOLLOW WITH PATIENT UNTIL DISCHARGED
--- NOTE | 2017-02-09 17:06 | NUR ---
PATIENT BROUGHT BACK FROM DIALYSIS CLINIC. VERY CONFUSED, AGGITATED. PRN ATIVAN GIVEN.
[2017-02-09 18:00] VITALS: BP 148/80
--- NOTE | 2017-02-09 19:15 | NUR ---
PT. SITTING UP IN W/C IN NURSING STATION WHILE HOUSEKEEPING CLEANS UP THE BROKEN DISHES FROM PT. ACCIDENTLY KNOCKING OVER HER DINNER TRAY IN HER ROOM. PT. ASSISTED BACK TO BED AND POSITIONED TO COMFORT. PT. WANTING TO TALK TO HER NIECE, HALLIE. HALLIE CALLED AND PHONE GIVEN TO PT. PT. UNEXPECTEDLY HUNG UP THE PHONE AND HALLIE CALLED THE NURSES STATION. PT. AGGITATED AND WANTS SOMEONE TO COME AND GET HER AND PUT HER WHERE SHE NEEDS TO BE, IS HOW SHE PUTS IT. CALL TRANSFERRED BACK TO PT'S ROOM AND HALLIE AGAIN CONVERSED WITH PT. TO TRY AND CALM HER DOWN. HALLIE SAID HER SPOUSE, GARDENIA, AND THEIR SON, WILL, WILL BE COMING UP THERE SHORTLY TO SEE IF THEY CAN CALM PT. DOWN.
--- NOTE | 2017-02-09 19:45 | NUR ---
NIECE CALLED UNIT AND INQUIRED IF PT'S PSYCH CONSULT HAD BEEN COMPLETED. INFORMED NIECE I WOULD HAVE TO CHECK PT'S RECORD FOR THAT INFORMATION DUE TO IT NOT BEING PASSED ON IN REPORT AT CHANGE OF SHIFT. NIJAY SAID THAT WAS OK AND JUST TO LET HER KNOW WHEN I FOUND SOMETHING OUT. I SPOKE WITH THE DAY SHIFT CHARGE NURSE, MAUREEN FLOOD RN AND SHE DIDN'T KNOW ANYTHING ABOUT IT. WILL CONTINUE TO RESEARCH FOR INFO.
--- NOTE | 2017-02-09 20:00 | NUR ---
NIECE'S SPOUSE AND SON ARRIVED AND AT THIS TIME PT. IS RESTING QUIETLY LYING ON HER LEFT SIDE. IT WAS DECIDED THAT SINCE SHE WAS RESTING QUIETLY THEY WOULD NOT GO IN AND BOTHER HER AT THIS TIME.
--- NOTE | 2017-02-09 20:37 | NUR ---
HAVE HAD TO ASSIST PT. BACK ONTO BED WHEN FOUND SITTING ON THE SIDE OF HER BED WITH BED ALARM GOING OFF. WHEN ASKED WHERE SHE THOUGHT SHE WAS GOING SHE JUST POINTED TO THE W/C. EXPLAINED IT WAS BED TIME AND GAVE HER THE NIGHT TIME MEDS WITHOUT ANY PROBLEMS. ASSISTED BACK TO POSITION OF COMFORT WITH PILLOW BETWEEN HER KNEES WHILE SHE IS LYING BACK ONTO HER LEFT SIDE. CALL LIGHT WITHIN REACH BUT SHE HAS YET TO USE IT THIS SHIFT.
--- NOTE | 2017-02-09 23:02 | NUR ---
PT. FOUND SITTING ON THE RIGHT SIDE OF HER BED AND THE BED ALARM HASN'T GONE OFF. ASKED PT. WHERE SHE WAS GOING AND SHE SAID SHE DIDN'T KNOW. PT. REQUESTED SOME APPLESAUCE AND IT WILL BE GIVEN. PT. ASSISTED BACK INTO BED AND POSITIONED TO COMFORT WITH PILLOW BETWEEN HER KNEES. PT. ELECTED TO LAY ON HER RIGHT SIDE AT THIS TIME. CALL LIGHT WITHIN REACH.
--- NOTE | 2017-02-09 23:05 | NUR ---
CHARGE NURSE, CHERISE CARCAMO TALKING TO PT. WHILE I WAS GETTING PT'S APPLESAUCE. PT. DIDN'T WANT TO GET BACK INTO BED. AFTER TALKING WITH PT. SOME MORE PT. GOT AGGITATED AGAIN SO IT WAS DECIDED TO GIVE PT. HER ATIVAN. CRUSHED THE ATIVAN AND PLACED IT IN THE APPLESAUCE. PT. ATE ALL OF THE APPLESAUCE AND WAS REPOSITIONED TO COMFORT ON HER LEFT SIDE, COVERED UP AND PT. WAS CLOSING HER EYES I LEFT THE ROOM.
[2017-02-09 23:30] VITALS: BP 100/54
--- NOTE | 2017-02-10 03:50 | NUR ---
PT. IN BED WITH HOB UP FOR COMFORT LYING ON HER LEFT SIDE WITH PILLOW BETWEEN KNEES. EYES CLOSED AND RESP. DEEP AND EVEN. CALL LIGHT WITHIN REACH.
[2017-02-10 06:06] VITALS: BP 132/67
--- NOTE | 2017-02-10 07:30 | NUR ---
PT RESTING IN BED WITH EYES CLOSED. AWOKE EASILY TO VERBAL STIMULI. PT IS ALERT TO SELF AND ROOM. DISORIENTED TO TIME. PT NOTED TO BE INC OF A XLARGE AMOUNT OF URINE. BED BATH DONE, AND CLOTHING/BED LINENS CHANGED. PT ASSISTED UP INTO HER WC FOR BREAKFAST. FEEDING SELF WITHOUT DIFFICULTY. RIGHT HIP DRESSING IS CDI. NO DRAINAGE NOTED. SR'S ARE UP X 3 IN BED. CALL LIGHT AND BEDSIDE TABLE ARE WITHIN EASY REACH.
--- NOTE | 2017-02-10 10:00 | NUR ---
PT IS SITTING IN HER WC IN HER ROOM VISITING WITH A FRIEND. NO ACUTE DISTRESS NOTED.
[2017-02-10 12:13] VITALS: BP 126/72
--- NOTE | 2017-02-10 14:22 | NUR ---
PT RESTING IN BED TALKING ON THE PHONE. SHE IS CALM AT THIS TIME, BUT HAS BEEN YELLING OUT FOR HER , PAIN MEDS, OTHER FAMILY MEMBERS, ETC.
--- NOTE | 2017-02-10 18:00 | NUR ---
SITTING UP IN WC.CL IN REACH.
[2017-02-10 18:51] VITALS: BP 115/62
--- NOTE | 2017-02-10 19:55 | NUR ---
PT. IN BED LYING ON HER RIGHT SIDE WITH EYES CLOSED AND RESP. EVEN. PT. AWAKENS EASILY FOR ASSESSMENT. NO VOICED NEEDS AT THIS TIME AND HER CALL LIGHT IS WITIN REACH.
--- NOTE | 2017-02-10 23:49 | NUR ---
PT. IN BED WITH HOB UP SLIGHTLY FOR COMFORT. EYES CLOSED AND RESP. EVEN. CALL LIGHT WITHIN REACH.
[2017-02-11 00:27] VITALS: BP 110/63
--- NOTE | 2017-02-11 00:41 | NUR ---
DIALYSIS COORDINATOR: PATHWAYS: [facility] TUE/TUE/TUE @ 10:30. UPDATED RECORDS FORWARDED TO OPHD UNIT. MAGI MCNULTY.
--- NOTE | 2017-02-11 03:21 | NUR ---
PT. IN BED WITH HOB UP FOR COMFORT LYING ON HER LEFT SIDE. EYES CLOSED AND RESP. EVEN. CALL LIGHT WITHIN REACH.
[2017-02-11 04:58] VITALS: BP 137/64
[2017-02-11 06:49] LABS: BASOPHILS 0 % (0-2); EOSINOPHILS 0.7 % (0-7); HEMATOCRIT 28.6 % (36.0-48.0); HEMOGLOBIN 8.8 g/dL (12-16); IMMATURE GRANULOCYTES 0.3 % (0-5); LYMPHOCYTES 11.7 % (15-50); MCH 30.3 pg (26.0-34.0); MCHC 30.8 g/dL (31.0-37.0); MCV 98.6 fL (80.0-100.0); MONOCYTES 11.4 % (2-11); NEUTROPHILS 75.9 % (40-80); PLATELET COUNT 383 10x3/uL (130-400); RDW 13.5 % (11.5-14.5); WBC 6.8 10x3/uL (4.8-10.8)
--- NOTE | 2017-02-11 07:00 | NUR ---
PT WAS RECEIVED IN BED WITH EYES CLOSED AT THE BEGINNING OF THIS SHIFT. STABLE CONDITION OBSERVED. VITAL SIGNS; TEMP. 97.7, PULSE 103, RESP. 14, B/P 84/58, 02 SAT. 94%. NIECE CAME FOR A VISIT AND HELPED HER EAT HER BREAKFAST. NO SIGNS OF DISCOMFORT OR DISTRESS. WILL BE MONITORING HER AND ASSISTING PRN WITH ADL'S. CALL LIGHT IS IN REACH.
[2017-02-11 07:10] LABS: ANION GAP 7.3 mmol/L (8-16); CALCIUM 10.2 mg/dL (8.5-10.1); CARBON DIOXIDE 33.2 mmol/L (21.0-32.0); CREATININE - SERUM 2.7 mg/dL (0.6-1.3); MAGNESIUM - SERUM 1.9 mg/dL (1.8-2.4); PHOSPHOROUS 3.5 mg/dL (2.5-4.9); POTASSIUM - SERUM 4.5 mmol/L (3.5-5.1)
[2017-02-11 09:49] VITALS: BP 84/58
--- NOTE | 2017-02-11 15:04 | NUR ---
PT WAS JUST TAKEN TO DIALYSIS UNIT FOR TREATMENT IN HER BED. STABLE CONDITION UPON LEAVING REHAB UNIT.
--- NOTE | 2017-02-11 18:17 | NUR ---
PT STILL IN DIALYSIS HAVING TREATMENT. WILL ASSESS PT UPON HER RETURN TO REHAB IF BEFORE 7PM.
--- NOTE | 2017-02-11 19:20 | NUR ---
PATIENT IN BED, LYING ON LEFT SIDE. NIECE JUST DEPARTED FOR HOME.
--- NOTE | 2017-02-11 21:10 | NUR ---
HAD DIFFICULT TIME GETTING PATIENT TO COOPERATE WITH ASSESSMENT AND TAKING PO MEDS SHE KEPT TRYING TO ROLL OVER ON HER LEFT SIDE WHILE I WAS TRYING TO KEEP HER UPRIGHT TO TAKE MEDICATONS INCLUDING NORCO PO FOR PAIN LEVEL OF 7/10 IN RIGHT HIP. TOOK MEDICATIONS WITHOUT SWALLOWING DIFFICULTY.
[2017-02-11 23:20] VITALS: BP 122/72
--- NOTE | 2017-02-12 00:35 | NUR ---
RESTING IN BED ON RIGHT SIDE, EYES CLOSED.
--- NOTE | 2017-02-12 02:30 | NUR ---
RESTING IN BED, NOW ON LEFT SIDE. RESTING QUIETLY.
[2017-02-12 04:25] VITALS: BP 106/64
--- NOTE | 2017-02-12 04:25 | NUR ---
PATIENT AWAKE. MORE COMMUNICATIVE AND COOPERATIVE THIS MORNING. DENIES NEEDS.
--- NOTE | 2017-02-12 06:10 | NUR ---
PATIENT SHOUTING FOR HELP. FOUND HER INCONTINENT OF A LARGE AMOUNT OF URINE, HOLDING LARGE FORMED STOOL IN HER HAND. CLEANSED GROSS STOOL FROM PATIENT AND HANDS, THEN SHOERED HER INCLUDING SCRUBBING NAILS. CHANGED HER PULL-UP BRIEF AND SHIRTS. CHANGED ALL LINENS. SANITIZED BEDRAILS AND FLOOR WHERE MORE STOOL BOLUSES WERE FOUND BESIDE AND UNDER BED. PATIENT QUIETE CONFUSED, BUT COOPERATIVE THIS MORNING. HELD LASIX FOR LOW BP. GAVE HER SCHEDULED PROTONIX 40MG.
--- NOTE | 2017-02-12 08:00 | NUR ---
PATIENT VERY CONFUSED. ALERT/ORIENT TO SELF ONLY. HELPED INTO WHEELCHAIR TO USE BATHROOM. PATIENT CONT. OF URINE AT THIS TIME. PATIENT HELPED GET DRESSED THIS MORNING BY THIS NURSE. MAX ASST WITH DRESSING. SAT UP IN WHEELCHAIR TO EAT BREAKFAST. CARTONS ON TRAY OPENED AND FOOD CUT UP FOR PATIENT. PATIENT ABLE TO FEED SELF
--- NOTE | 2017-02-12 10:46 | NUR ---
NEW ORDER RECEIVED FROM DR. LEVIN.
[2017-02-12 11:45] VITALS: BP 124/52
--- NOTE | 2017-02-12 12:48 | NUR ---
DR. LUNA CALLED. CONSULTED FOR THIS PATIENT. NEW ORDERS RECEIVED
--- NOTE | 2017-02-12 14:15 | NUR ---
PRN PAIN MEDICATION GIVEN FOR RIGHT HIP PAIN
--- NOTE | 2017-02-12 15:29 | NUR ---
ICE PACK APPLIED TO RIGHT HIP FOR PAIN/DISC
[2017-02-12 17:30] VITALS: BP 123/57
--- NOTE | 2017-02-12 18:03 | NUR ---
PATIENT REMAINS VERY CONFUSED. CONTINUES TO ASK WHY SHE IS HERE AND ASK ABOUT HER NIECE HALLIE. PATIENT BACK IN BED. BED ALARM ON
--- NOTE | 2017-02-12 19:00 | NUR ---
PATIENT SHOUTING FOR HELP. ASKED HER WHAT SHE NEEDED. SAID SHE DID NOT NEED ANYTHING, BUT WANTED TO MAKE SURE, "... [THAT] THERE WAS SOMEONE OUT THERE."
--- NOTE | 2017-02-12 20:30 | NUR ---
PATIENT HAS MCCLENDON OUT MULTIPLE TIMES SINCE 1899, AND EACH TIME SAID SHE DIDN'T WANT ANYTHING. DID SO AGAIN JUST NOW. VERY CONFUSED. CANNOT UNDERSTAND THAT SHE IS IN THE HOSPITAL, LET ALONE IN REHAB DESPITE NUMEROUS ATTEMPTS TO REORIENT HER. ASSESSMENT AND HS MEDS COMPLETE. GAVE HER NORCO 5/325 X1 TAB PO FOR PAIN LEVEL OF 5/10 IN RIGHT HIP. TOOK HS MEDS WITH MILD DELAY DUE TO CONFUSION, NOT DIFFICULTY SWALLOWING. KEPT SWALLOWING WATER BUT WOULD HOLD MEDS ON TONGUE. REQUIRED CONSTANT CUING TO SWALLOW HER PILLS (SINGLY WITH WATER). PATIENT IS CURRENTLY CLEAN AND DRY TO POTENTIAL INCONTINENCE.
--- NOTE | 2017-02-12 22:15 | NUR ---
RESTING QUIETLY IN BED ON LEFT SIDE, TALKING OCCASIONALLY IN HER SLEEP.
[2017-02-12 22:20] VITALS: BP 103/69
--- NOTE | 2017-02-13 00:15 | NUR ---
RESTING QUIETLY ON LEFT SIDE. NO DISTRESS NOTED.
--- NOTE | 2017-02-13 01:45 | NUR ---
ASSISTED PATIENT UP TO BSC WHERE SHE URINATED 200ML AFTER VERY SMALL INCONTINENCE IN HER BRIEF WHILE SLEEPING. RETURNED HER TO BED AFTER BRIEF WAS CHANGED.
--- NOTE | 2017-02-13 04:40 | NUR ---
RESTING IN BED ON RIGHT SIDE, RESPIRING QUIETLY.
[2017-02-13 05:33] VITALS: BP 126/67
--- NOTE | 2017-02-13 05:45 | NUR ---
VS TAKEN AND RECORDED. GAVE PATIENT HER SCHEDULED PO MEDS BUT HAD A BIT OF DIFFICULTY DUE TO MILDLY UNCOOPERATIVE/AVOIDANT BEHAVIOR. KEPT ATTEMPTING TO ROLL OVER ON LEFT SIDE AFTER SHE WAS REPOSITIONED UP IN BED WITH HOB ELEVATED TO FACILITATE SWALLOWING.
--- NOTE | 2017-02-13 08:14 | NUR ---
SITTING UP EATING BREAKFAST CALL LIGHT IN REACH
--- NOTE | 2017-02-13 09:56 | NUR ---
PATIENT HELPED UP TO BATHROOM. PATIENT GRABBED HOLD OF LIFT BAR BY TOILET AND TORE THE SKIN OFF OF HER RIGHT HAND MIDDLE FINGERS, KNUCKLES. SKIN IS VERY PAPER THIN. KNUCKLES CLEANED AND BANDAGES APPLIED
[2017-02-13 12:03] VITALS: BP 124/65
--- NOTE | 2017-02-13 14:41 | NUR ---
PATIENTS HALLIE DAMON, IN ROOM VISITING WITH PATIENT.
--- NOTE | 2017-02-13 16:00 | NUR ---
PATIENT IS LESS CONFUSED TODAY. NOT ASKING MULTIPLE QUESTIONS ABOUT WHERE SHE IS AND WHERE IS HALLIE. PATIENT BEING VERY CORDAL WITH THIS NURSE.
[2017-02-13 18:04] VITALS: BP 123/65
--- NOTE | 2017-02-13 18:55 | NUR ---
RESTING IN BED ON LEFT SIDE, EYES CLOSED.
--- NOTE | 2017-02-13 19:50 | NUR ---
REMAINS IN BED ON LEFT SIDE, BUT NOW AWAKE. FOUND BLOOD ON PATIENT'S PILLOWCASE AND SIDERAIL. TRACED THIS TO BLOOD OOZING OUT FROM UNDER BANDAID DRESSING TO NEW SMALL SKIN TEAR ON LF #4. DAY SHIFT NURSE REPORTS THIS OCCURRED TODAY IN THE AM WHEN PATIENT TRANSFERRED AND BUMPED FRAGILE THIN SKIN. REMOVED BANDAIDS AND WRAPPED WITH STRIP OF TELFA PAD AND TAPED IT TO ITSELF. WRAPPED IT WITH SOFT KERLIX AROUND FINGER AND UP AND AROUND WRIST AND SECURED WITH TAPE TO KEEP PATIENT FROM PULLING DRESSING OFF WEHN MORE CONFUSED. SANITIZED BEDRAILS.
[2017-02-13 22:45] VITALS: BP 152/79
--- NOTE | 2017-02-13 22:45 | NUR ---
CLEANSED PATIENT. REDRESSED SKIN TEARS ON BOTH LF #3 AND #4 DUE TO SATURATION OF PRIOR DRESSINGS. CLEANSED A SMALL SKIN TEAR FLAP ON DORSAL SURFACE OF EACH FINGER. NEITHER MEASURES MORE THAN 1CM. APPLIED MASTISOL TO EACH AND APPLIED 1 STERI STRIP TO LF#3 AND 2 STRIPS TO LF 4. THEN WRAPPED DOUBLE THICK TELFA PAD AROUND LF #4 FOLLOWED BY STERILE FOLDED 4X4, AND JUST A FOLDED 4X4 ON LF#3. SECURED BOTH DRESSINGS WITH SOFT KERLIX WRAP AROUND EACH AND UP TO AND AROUND WRIST TO KEEP PATIENT FROM PULLING THE DRESSINGS OFF. SANITIZED PATIENT'S SIDERAILS DUE TO BLOOD TRACES. CHANGED ALL LINENS AFTER CLEANSING PATIENT FROM BLOOD SMEARS AND ALSO URINARY INCONTINENCE IN HER PULL-UP. THEN ASSESSED PATIENT, GAVE HER HS MEDS AND ALSO NORCO 5/325 X1 TAB PO FOR PAIN LEVEL OF 6/10 IN RIGHT HIP. PATIENT WAS TOTALLY UNAWARE SHE HAD BEEN BLEEDING FROM HER HAND, BUT JUDGING FROM THE MULTIPLE LOCATIONS I FOUND BLOOD TRACES SHE HAD HAD HER HAND UNDER HER HEAD, ON HER PILLOW, WIPING HER FACE, SOLE OF LEFT FOOT, ETC. TOLD HER TO TRY TO KEEP HER HAND STILL AND ALLOW THE FINGERS TO STOP BLEEDING. REMAINS VERY CONFUSED. UNABLE TO COMPREHEND SHE IS IN THE HOSPITAL DESPITE MULTIPLE ATTEMPTS TO REORIENT HER.
--- NOTE | 2017-02-14 00:10 | NUR ---
IN BED, AWAKE AGAIN. REPOSITIONED HER UP IN BED. PATIENT CALM. DENIES NEEDS. NEW DRESSINGS TO LEFT HAND REMAIN C/D/I EXTERNALLY.
--- NOTE | 2017-02-14 02:00 | NUR ---
RESTING QUIETLY ON LEFT SIDE. NO DISCOMFORT NOTED.
--- NOTE | 2017-02-14 04:00 | NUR ---
RESTING ON LEFT SIDE IN APPARENT COMFORT. RESPIRATIONS UNLABORED.
[2017-02-14 05:59] VITALS: BP 103/63
--- NOTE | 2017-02-14 06:05 | NUR ---
AWOKE PATIENT AND TOOK AND RECORDED HE VS. HELD SCHEDULED LASIX 80MG PO FOR LOW BP OF 103/63 AND BECAUSE PATIENT DIALYZES TODAY.
[2017-02-14 06:42] LABS: BASOPHILS 0.2 % (0-2); EOSINOPHILS 1.3 % (0-7); HEMOGLOBIN 8.6 g/dL (12-16); IMMATURE GRANULOCYTES 0.3 % (0-5); LYMPHOCYTES 13.5 % (15-50); MCH 31.2 pg (26.0-34.0); MCHC 31.9 g/dL (31.0-37.0); MCV 97.8 fL (80.0-100.0); MEAN PLATELET VOLUME 9.8 fL (7.4-10.4); MONOCYTES 14.1 % (2-11); NEUTROPHILS 70.6 % (40-80); PLATELET COUNT 407 10x3/uL (130-400); RBC 2.76 10x6/uL (4.00-5.40); RDW 13.8 % (11.5-14.5); WBC 6.1 10x3/uL (4.8-10.8)
[2017-02-14 06:59] LABS: ANION GAP 8.3 mmol/L (8-16); CALCIUM 9.6 mg/dL (8.5-10.1); CARBON DIOXIDE 33.5 mmol/L (21.0-32.0); CREATININE - SERUM 3.1 mg/dL (0.6-1.3); POTASSIUM - SERUM 4.8 mmol/L (3.5-5.1)
--- NOTE | 2017-02-14 07:45 | NUR ---
PT LYING IN BED. ASSISTED PT WITH REPOSITIONING FOR BREAKFAST. PT DENIES NEEDS. BED LOW. CL IN REACH.
--- NOTE | 2017-02-14 08:50 | NUR ---
PT C/O PAIN 04/11 TO RT HIP. PT REQ AND REC'D PRN PAIN MEDICATION AT THIS TIME. PT ASSISTED WITH EATING BREAKFAST ALSO AT THIS TIME. WCTM. BED LOW. CL IN REACH.
--- NOTE | 2017-02-14 11:00 | NUR ---
PT IN THERAPY
[2017-02-14 12:00] VITALS: BP 99/63
--- NOTE | 2017-02-14 12:35 | NUR ---
PT SITTING UP IN WC EATING LUNCH. CALLING OUT FOR HALLIE TO GET HER OUT OF HERE. PT REORIENTED TO PLACE AND SITUATION. PT DENIES NEEDS AT THIS TIME. CL IN REACH. BOX ALARM ATTACHED.
--- NOTE | 2017-02-14 14:21 | NUR ---
PT CONTINUES TO CALL OUT EVEN AFTER BEING REORIENTED TO PLACE AND SITUATION. DR CHEUNG IN PREV TODAY TO SEE HER. DC'D SEROQUEL AND ADDED YOANDY HARDY.
--- NOTE | 2017-02-14 19:30 | NUR ---
PT. SITTING UP IN W/C AND STARTED ASKING WHERE SHE WAS, WHERE WAS HALLIE, HAD I SEEN HALLIE, AND WHO WAS GOING TO TAKE CARE OF HER. ANSWERED PT'S QUESTIONS TO THE BEST OF MY ABILITY AND PT. APPEARED SATISFIED WITH THE ANSWERS. ASSESSMENT COMPLETED. PT. C/O HEADACHE THAT SHE HAS HAD FOR DAYS AND CAN'T SEEM TO GET RID OF IT AND FOR SOME REASON, "I FEEL ANXIOUS". INFORMED PT. THAT I WOULD GIVE HER SOMETHING TO HELP WITH BOTH WITH HER NIGHTTIME MEDS AND SHE WAS SATISFIED WITH THAT. INFORMED PT. I WAS GOING TO SEE MY OTHER PT'S BUT I WOULD RETURN. HAD NO SOONER LEFT ROOM SHE STARTED YELLING, "SOMEBODY HELP ME." I RETURNED TO HER ROOM AND ASKED WHAT I COULD HELP HER WITH. SHE STATED SHE NEEDED HELP GETTING HER DIET COKE BOTTLE OPEN. LOOSENED THE CAP FOR PT. AND SHE BEGAN TO DRINK OUT OF IT. LEFT ROOM AGAIN TO SEE OTHER PATIENTS. PT. HAS HER CALL LIGHT WITHIN REACH.
--- NOTE | 2017-02-14 19:40 | NUR ---
PT. STARTED YELLING IN HER ROOM AGAIN, "SOMEBODY HELP ME." WHEN I ARRIVED PT. HAD SPILLED THE MAJORITY OF HER DIET COKE ON THE FLOOR. AREA CLEANED UP AND PT. WAS THANKFUL. BUZZSAW OPERATOR HELPER ASSISTED PT. BACK INTO BED AND HELP PT. TO TRY AND CALM DOWN AGAIN BY ANSWERING PT'S QUESTIONS TO WHERE SHE WAS AND HOW DID SHE GET HERE AND WHERE IS HALLIE. PT. AGAIN CALMED DOWN AND HAS HER CALL LIGHT WITHIN REACH, BUT SHE HAS YET TO USE IT.
[2017-02-14 21:12] VITALS: BP 96/58
--- NOTE | 2017-02-14 23:08 | NUR ---
PT. IN BED WITH HOB UP FOR COMFORT AND IS LYING ON HER LEFT SIDE. ANY NOISE DISTURBS PT. AND SHE WILL START YELLING OUT FOR SOMEONE TO HELP HER. GAVE NEW TEDDY PITT, FIRST DOSE TONIGHT AND WAITING TO SEE IF PT. WILL CALM DOWN WITH ANSWERS TO HER QUESTIONS SHE ASKS THEM. SO FAR NOW SHE IS RESTING QUIETLY AND IS UNDISTURBED. CALL LIGHT WITHIN REACH.
--- NOTE | 2017-02-15 00:30 | NUR ---
PTS FAMILY MEMBER IS IN ROOM. I ASKED HER ABOUT SENDING PT TO [facility]. SHE REPLIED THAT UNDER NO CIRCUMSTANCES DID SHE WANT HER TRANSFERRED. SHE STATED THEY ONLY WANTED THEM TO REGULATE HER MEDICATIONS HERE.
--- NOTE | 2017-02-15 03:04 | NUR ---
PT. IN BED WITH HOB UP FOR COMFORT AND IS LYING ON HER LEFT SIDE WITH HER EYES CLOSED AND RESP. DEEP AND EVEN. CALL LIGHT REMAINS WITHIN REACH BUT SHE HAS YET TO USE IT.
[2017-02-15 06:22] VITALS: BP 109/50
--- NOTE | 2017-02-15 07:30 | NUR ---
PT RESTING IN BED WITH EYES CLOSED. AWOKE EASILY TO VERBAL STIMULI. INC. CARE GIVEN AT THIS TIME. PT IS ALERT TO SELF. CONFUSED TO TIME AND PLACE. UNABLE TO REORIENT HER AT THIS TIME. RIGHT CHEST HEMISPLIT NOTED. PT SAT UP 45 DEGREES FOR BREAKFAST. FEEDING SELF A FEW BITES WITHOUT DIFFICULTY. SR'S ARE UP X 3 IN BED. CALL LIGHT AND BEDSIDE TABLE ARE WITHIN EASY REACH. BED ALARM IS ON.
--- NOTE | 2017-02-15 08:55 | NUR ---
PT IS RESTING IN BED AWAITING THERAPY. NO ACUTE DISTRESS NOTED.
--- NOTE | 2017-02-15 11:00 | NUR ---
PT IS RESTING IN BED BETWEEN THERAPIES. NO COMPLAINT VOICED. ASSISTED TO THE BATHROOM PRN.
[2017-02-15 12:00] VITALS: BP 120/70
--- NOTE | 2017-02-15 13:36 | NUR ---
PT IS RESTING IN BED BETWEEN THERAPIES. NO NEEDS VOICED.
--- NOTE | 2017-02-15 14:32 | NUR ---
PT TO DIALYSIS VIA BED PROPELLED BY STAFF AT THIS TIME.
--- NOTE | 2017-02-15 17:25 | NUR ---
PT RETURNED FROM DIALYSIS AFTER ONLY 112 CC PULLED OFF (PER REPORT). VS HAD JUMPED UP, SO DIALYSIS STOPPED. PT RETURNED TO FLOOR VIA BED. VSS AT THIS TIME.
--- NOTE | 2017-02-15 17:57 | NUR ---
PT RETURNED TO ROOM FROM DIALYSIS VIA BED. SET UP FOR SUPPER. NO COMPLAINT VOICED.
[2017-02-15 17:59] VITALS: BP 126/72
--- NOTE | 2017-02-15 18:00 | NUR ---
YELLING OUTLOUD FOR SOMEONE TO COME AND GET HER.PT IS CONFUSED.CALMED AND RE-ORIENTED.CL IN REACH AND ALARM ON.LIGHTS DIMMED.
--- NOTE | 2017-02-15 19:25 | NUR ---
PT. VERY RESTLESS THIS EVENING. SEVERAL STAFF MEMBERS HAVE HAD TO GO INTO HER ROOM TO HELP CALM HER DOWN AND TO ANSWER HER QUESTIONS. PT. IS ASKING THE SAME QUESTIONS TO EACH PERSON. A COUPLE OF MINUTES AFTER A STAFF MEMBER LEAVE PT'S ROOM SHE IS ATTEMPTING TO GET OOB BUT STOPS CAUSE HER RIGHT HIP WILL START TO HURT AND SHE WILL YELL OUT IN DISCOMFORT. ANSWERED PT'S QUESTIONS BEST I COULD TIL SHE STARTED TALKING ABOUT PEOPLE I DIDN'T KNOW AND THEN SHE STARTED TALKING ABOUT WHERE SHE LIVED [place] BY [place]. ASSESSMENT COMPLETED. PT. POSITIONED IN BED FOR COMFORT AND CALL LIGHT LEFT WITHIN REACH BUT PT. HAS YET TO USE IT.
--- NOTE | 2017-02-15 20:50 | NUR ---
LAURA, PT STOPPED BY TO SEE PT. HE DIDN'T GET TO FINISH PT TX. TODAY DUE TO DIALYSIS. LAURA SAT AND TALKED TO PT. AND ANSWERED HER QUESTIONS THEN DID SOME BED THERAPY WITH PT. LAURA PLACED BEDSIDE TABLE OVER BED FOR PT. TO EAT SOME CRACKERS SHE HAD IN HER ROOM, AND HER WATER WAS ALSO IN REACH. CALL LIGHT WITHIN REACH ALSO.
--- NOTE | 2017-02-15 22:16 | NUR ---
PT. IN BED WITH HOB UP FOR COMFORT WITH EYES CLOSED AND RESP. DEEP AND EVEN.
--- NOTE | 2017-02-15 23:05 | NUR ---
PT. IN BED WITH HOB UP FOR COMFORT WITH EYES CLOSED AND RESP. DEEP AND EVEN. CALL LIGHT WITHIN REACH.
[2017-02-16 00:23] VITALS: BP 113/62
[2017-02-16 05:20] VITALS: BP 109/64
[2017-02-16 06:28] LABS: BASOPHILS 0.2 % (0-2); EOSINOPHILS 0.5 % (0-7); HEMATOCRIT 25.4 % (36.0-48.0); HEMOGLOBIN 8.2 g/dL (12-16); IMMATURE GRANULOCYTES 0.5 % (0-5); LYMPHOCYTES 14.3 % (15-50); MCH 31.4 pg (26.0-34.0); MCHC 32.3 g/dL (31.0-37.0); MCV 97.3 fL (80.0-100.0); MEAN PLATELET VOLUME 9.7 fL (7.4-10.4); MONOCYTES 15.1 % (2-11); NEUTROPHILS 69.4 % (40-80); PLATELET COUNT 409 10x3/uL (130-400); RBC 2.61 10x6/uL (4.00-5.40); RDW 13.9 % (11.5-14.5)
--- NOTE | 2017-02-16 06:35 | NUR ---
PT. IN BED WITH HOB UP FOR COMFORT WITH EYES CLOSED AND RESP. DEEP AND EVEN. PT. AWAKENED EASILY FOR HER MORNING WT, VITAL SIGNS AND MEDICATIONS. NO VOICED NEEDS AT THIS TIME AND HER CALL LIGHT IS WITHIN REACH.
[2017-02-16 07:02] LABS: ANION GAP 11.5 mmol/L (8-16); CALCIUM 9.1 mg/dL (8.5-10.1); CARBON DIOXIDE 30.7 mmol/L (21.0-32.0); POTASSIUM - SERUM 4.2 mmol/L (3.5-5.1)
[2017-02-16 07:18] LABS: CREATININE - SERUM 2.3 mg/dL (0.6-1.3)
--- NOTE | 2017-02-16 07:23 | NUR ---
PT IS RESTING IN BED WITH EYES CLOSED. AWOKE EASILY TO VERBAL STIMULI. ALERT TO SELF. CONFUSED TO TIME AND PLACE. RIGHT CHEST HEMISPLIT NOTED. RIGHT HIP INCISION IS CDI. NO DRAINAGE NOTED. SR'S ARE UP X 3 IN BED. CALL LIGHT AND BEDSIDE TABLE ARE WITHIN EASY REACH. BED ALARM IS ON.
--- NOTE | 2017-02-16 10:13 | NUR ---
PT IS PARTICIPATING IN THERAPY AT THIS TIME.
--- NOTE | 2017-02-16 11:36 | NUR ---
PT IS SITTING IN HER WC IN HER ROOM WATCHING TV. NO DISTRESS NOTED.
[2017-02-16 11:39] VITALS: BP 109/73
--- NOTE | 2017-02-16 13:12 | NUR ---
Nutrition Follow Up: Pt is very confused at this time. Assisted pt with meal set up. Pt reported that she was afraid to eat, as she did not know if the food was hers. Assured pt that the food delivered to her room was her food and encouraged pt to eat. Pt is eating 46% meal avg on a regular diet. She is receiving Ensure BID. Wt loss 2# since admit. +BM 02/15/17. Labs reviewed. Meds noted including Lasix. Pt with poor po intake. Rec continue current diet, supplement regimen. RD following.
--- NOTE | 2017-02-16 14:12 | NUR ---
PT IS RESTING IN HER ROOM WATCHING TV. NO NEEDS VOICED.
--- NOTE | 2017-02-16 16:41 | NUR ---
CARE TEAM MEETING: SPOKE WITH RANJEET STERLING AND PATIENT WILL DISCHARGE HOME 02/18/17 . SHE WILL HAVE 24 HOUR CARE AT HOME AND WILL HAVE HOME HEALTH. WILL ASSIST RANJEET WITH DISCHARGE NEEDS. WILL CONTINUE TO FOLLOW WITH PATIENT UNTIL DISCHARGED
--- NOTE | 2017-02-16 17:39 | NUR ---
PT ASSISTED TO THE BATHROOM WITH MAX ASSIST FOR TRANSFERS, AND MIN ASSIST FOR TOILETING. SMALL BM NOTED.
[2017-02-16 17:53] VITALS: BP 108/64
--- NOTE | 2017-02-16 18:00 | NUR ---
CL IN REACH.NO DISTRESS
--- NOTE | 2017-02-16 19:25 | NUR ---
PT. IN BED YELLING FOR SOMEONE TO HELP HER. ENTERED ROOM AND IDENTIFIED MYSELF AND BEGAN ANSWERING HER QUESTIONS. PT. VERY RESTLESS AT THE BEGINNING OF THE CONVERSATION BUT BY THE END WAS LESS RESTLESS. PT. TO GET A SHOWER THIS EVENING AND INFORMED PT. OF THIS AND SHE WAS AGREEABLE. ASSESSMENT COMPLETED. CALL LIGHT WITHIN REACH BUT PT. HAS YET TO USE IT.
--- NOTE | 2017-02-16 23:12 | NUR ---
PT. IN BED WITH HOB FLAT. EYES CLOSED AND RESP. DEEP AND EVEN. CALL LIGHT WITHIN REACH IF PT. CHOOSES TO USE.
[2017-02-17 00:35] VITALS: BP 103/49
--- NOTE | 2017-02-17 03:09 | NUR ---
PT. IN BED LYING ON HER LEFT SIDE WITH HOB FLAT. EYES CLOSED AND RESP. EVEN. CALL LIGHT WITHIN REACH IF SHE DECIDES TO USE, SHE HASN'T YET.
[2017-02-17 05:55] VITALS: BP 105/60
--- NOTE | 2017-02-17 06:23 | NUR ---
PT. AWAKENED EASILY THIS MORNING FOR V.S. AND MEDS. NO VOICED NEEDS AND SHE WANTED TO GO BACK TO SLEEP. CALL LIGHT WITHIN REACH.
--- NOTE | 2017-02-17 08:15 | NUR ---
PT UP EATING BREAKFAST, DENIES NEEDS.
--- NOTE | 2017-02-17 10:23 | NUR ---
PT IN THERAPY, TOLERATING WELL.
[2017-02-17 12:00] VITALS: BP 161/65
--- NOTE | 2017-02-17 16:15 | NUR ---
PT IN DIALYSIS
--- NOTE | 2017-02-17 18:55 | NUR ---
JUST RETURNED FROM DIALYSIS VIA BED. VERY CONFUSED AND MILDLY AGITATED. INSISTING ON GETTING OOB AND "LEAVING RIGHT NOW". DOES NOT REMEMBER SHE HAS BEEN INSTRUCTED MULTIPLE TIMES IN PAST 10 MINUTES TO REMAIN IN BED AND THAT SHE IS DISCHARGING HOME TOMORROW, NOT TONIGHT. REMINDED HER THAT HER NIECE AND FAMILY MEMBERS VISIT HER EVERY EVENING AND HER AWARE SHE IS HERE. PATIENT HAS NO MEMORY OF THIS. DOES NOT EVEN REMEMBER THINGS SHE IS TOLD FOR EVEN 5 MINUTES.
--- NOTE | 2017-02-17 19:50 | NUR ---
NIECE'S AND HIS SON HAVE BEEN VISITING WITH PATIENT FOR THE PAST 45 MINUTES. PATIENT IS CALMER FOR NOW. FAMILY MEMBERS NOW HEADED HOME. PATIENT IS QUIET AND APPEARS TO BE DOZING AT THIS TIME.
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
--- NOTE | 2017-02-17 21:35 | NUR ---
CALLED SHABNAM BEVERLY APN TO GET 1 TIME ROUTE CHANGE ON PATIENT'S GEODON 20MG, FROM PO TONIGHT TO IM PATIENT WILL NOT COOPERATE WITH HER NIECE EITHER. HAS BEEN HURLING EXPLETIVES AT HER NIECE AND IS BEING VERY LOUD AND DISRUPTIVE, DISTURBING OTHER PATIENTS WITH HER SHOUTING. ALSO GOT AN ORDER FOR ATIVAN 0.5MG IM Q6H FOR WHEN PATIENT IS UNCOOPERATIVE WITH TAKING IT ORALLY IF NEED ARISES.
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
[2017-02-17 22:11] VITALS: BP 99/58
--- NOTE | 2017-02-17 22:30 | NUR ---
CALLED DANIELE QUIROZ AND REPORTED TO HER THAT PATIENT IS CURRENTLY RESTING QUIETLY.
[2017-02-17 23:00] VITALS: BP 107/54
--- NOTE | 2017-02-17 23:00 | NUR ---
PATIENT CALMER BUT SEWING MACHINE OPERATOR PAPER BAGS REPORTS WHEN SHE TOOK VS PATIENT WAS MILDLY UNCOOPERATIVE, BUT DROWSY.
--- NOTE | 2017-02-18 | NUR ---
PATIENT AWAKE. DROWSY. C/O BACK PAIN OF LEVEL 7/10 IN LOW BACK AND ALSO IN RIGHT HIP. GAVE PATIENT NORCO 5/325 X1 TAB PO FOR PAIN. GAVE HER SCHEDULED HS MEDS, FOLDING GEODON PO IT WAS GIVEN IM @ 2200 HRS. HELD RANEXA AND LOSPRESSOR FOR LOW BP. RETURNED PO ATIVAN TO [facility] ROTARY DRAWER IT IS NOT CURRENTLY NEEDED. AND COULD NOT BE GIVEN PO EARLIER DUE TO COMBATIVENESS.
--- NOTE | 2017-02-18 02:20 | NUR ---
RESTING IN BED ON LEFT SIDE. APPEARS COMFORTABLE.
--- NOTE | 2017-02-18 04:20 | NUR ---
CALLING OUT SOFTLY FOR HELP. WHEN I ASKED HER WHAT SHE NEEDED, SHE SAID, "OH, NOTHING. IT'S JUST THAT I'M GOING TO HAVE TO GET UP FOR WORK HERE PRETTY SOON. REMINDED HER SHE IS IN THE HOSPITAL, WHICH SHE DID NOT DISPUTE, BUT STILL MAINTAINED SHE WOULD CRISTOFER HAVE TO GET UP FOR WORK. REMINDED HER THAT IT IS ONLY 0420 IN THE MORNING SO IT IS NOT YET TIME TO GET UP. ASKED HER IF SHE WAS WET AND SHE REPLIED IN THE NEGATIVE. WILL CHECK HER AGAIN WHEN I TAKE 0600 VS.
[2017-02-18 05:10] VITALS: BP 104/54
--- NOTE | 2017-02-18 06:14 | NUR ---
GAVE PATIENT SCHEDULED MEDS. HELD LASIX FOR LOW BP OF 104/54. PATIENT IRRITABLE, BUT COOPERATIVE WITH A BIT OF CUEING AND REDIRECTING.
[2017-02-18 07:20] LABS: BASOPHILS 0 % (0-2); EOSINOPHILS 0.5 % (0-7); HEMATOCRIT 23.4 % (36.0-48.0); IMMATURE GRANULOCYTES 0.2 % (0-5); LYMPHOCYTES 10.9 % (15-50); MCHC 32.1 g/dL (31.0-37.0); MCV 96.7 fL (80.0-100.0); MEAN PLATELET VOLUME 9.5 fL (7.4-10.4); NEUTROPHILS 76.4 % (40-80); PLATELET COUNT 421 10x3/uL (130-400); RBC 2.42 10x6/uL (4.00-5.40); RDW 13.8 % (11.5-14.5); WBC 6.1 10x3/uL (4.8-10.8)
[2017-02-18 07:43] LABS: HEMOGLOBIN 7.5 g/dL (12-16)
[2017-02-18 07:52] LABS: ANION GAP 11.8 mmol/L (8-16); CALCIUM 9.2 mg/dL (8.5-10.1); CARBON DIOXIDE 28.2 mmol/L (21.0-32.0); CREATININE - SERUM 1.9 mg/dL (0.6-1.3)
--- NOTE | 2017-02-18 09:01 | NUR ---
PT FAMILY ASSISTING WITH BREAKFAST. FAMILY HAS AGREED TO LET PT GO TO CARE. [facility].
--- NOTE | 2017-02-18 09:26 | NUR ---
DUE TO CHANGE IN CONDTION PATIENT DISCHARGING FROM REHAB AND BEING ADMITTED TO [facility]. FAMILY NOTIFIED
--- NOTE | 2017-02-18 11:52 | NUR ---
PT DISCHARGED TO [facility]. REPORT CALLED. PT DISCHARGE INSTRUCTIONS AND MEDS SENT WITH PT. PT TOLERATED MOVE WELL.
== END 2017-02-18 11:54 | DRG 559 ==
LOC: D.REHAB 15:38
PROVIDERS: Family Medicine; Internal Medicine; ADMIT Emergency Medicine
DX: S72.001D Fracture of unspecified part of neck of right femur, subsequent encounter for closed fracture with routine healing (principal); N18.6 End stage renal disease; I13.2 Hypertensive heart and chronic kidney disease with heart failure and with stage 5 chronic kidney disease, or end stage renal disease; N17.9 Acute kidney failure, unspecified; I50.9 Heart failure, unspecified; Z99.2 Dependence on renal dialysis; E87.6 Hypokalemia; I25.10 Atherosclerotic heart disease of native coronary artery without angina pectoris; M85.80 Other specified disorders of bone density and structure, unspecified site; Z95.5 Presence of coronary angioplasty implant and graft; Z91.81 History of falling; F03.90 Unspecified dementia, unspecified severity, without behavioral disturbance, psychotic disturbance, mood disturbance, and anxiety

== ENCOUNTER 2017-02-18 11:18 | Inpatient (IN) | payer MEDICARE, OTHER ==
[~2017-02-18] VITALS: Ht 162.6 cm; Wt 28.1 kg
--- NOTE | 2017-02-18 11:30 | NUR ---
PATIENT ADMITTED TO [facility] FROM REHAB, PATIENT NORMALLY LIVES AT HOME WITH A 24 HR CASE MANAGEMENT MANAGER. SHE IS A STATUS POST RIGHT HIP REPAIR ON 01/30/17, INCISION IS OPEN TO AIR. HX OF DEMENTIA AND MORE CONFUSED SINCE SURGERY. PATIENT IS A RENAL PATIENT AND RECEIVES DIALYSIS M,W,F. FOLLOWED BY DR. LORENZO, CONSULT IN COMPUTER. PATIENT HAS A RIGHT CHEST HEMISPLIT FOR DIALYSIS, SHE HAS AN OLD BRUIT SITE TO LEFT ARM, BUT IT IS SCAR TISSUE WHERE THEY REMOVED IT. PATIENT HAS A HX OF STROKE. PATIENT HAS A POA HER NIECE HALLIE. SHE HAS TWO SKIN TEARS TO HER THIRD AND FOURTH DIGITS ON HER LEFT HAND THAT ARE COVERED WITH STERI STRIPS, SHE HAS A SCAB ON HER LEFT MELGOZA THAT IS HEALING. SHE HAS MULTIPLE SMALL BRUISES TO BILATERAL ARMS. PATIENT CONTINUES TO ASK THE SAME QUESTION OVER AND OVER. SHE DOES NOT REALIZE SHE HAD HIP SURGERY AND WONDERS WHAT SHE IS DOING HERE AND WHO WE ARE AND WHAT WE ARE DOING.
[2017-02-18 12:30] VITALS: BP 138/70; BMI 13.9
[2017-02-18 17:17] LABS: HEMOGLOBIN A1C 4.2 % (4.8-6.0)
[2017-02-18 17:18] LABS: LDL-HDL RATIO 0.8 ratio (1.5-3.5)
--- NOTE | 2017-02-18 17:19 | NUR ---
PATIENT IS GETTING ANXIOUS AND SOMEWHAT TEARFUL ASKING FOR HALLIE AND THEN SAYING SHE HAS TO LEAVE, SHE DOES NOT KNOW WHERE SHE IS AND DOES NOT UNDERSTAND WHY SHE IS HERE. STAFF HAVE EXPLAINED OVER AND OVE, BUT PATIENT FORGETS AND GETS UPSET. ATIVAN 0.5 MG PO GIVEN NOW FOR ANXIETY, WILL MONITOR.
--- NOTE | 2017-02-18 18:00 | NUR ---
PATIENT REMAINS ANXIOUS, SHE KEEPS SAYING HER FAMILY DOES NOT KNOW SHE IS HERE AND THEN SHE WILL MENTION HER MOTHER. PATIENT CONFUSED AND THIS MAKES HER MORE ANXIOUS. CONTINUE TO MONITOR.
[2017-02-18 19:30] VITALS: BP 117/68
--- NOTE | 2017-02-18 19:30 | NUR ---
RECEIVEED SITTING AT NURSES DESK IN W/C. CONFUSED TO WHERE SHE IS AND WHY SHE IS HERE. ANXIOUSLY WAITING FOR HER MEDS. COOPERATIVE WITH ASSESSMENT. ADMINISTER PRESCRIBED MEDS, REORIENT TO REALITY VS NON-REALITY. VSS MEDICATION COMPLIANT. ENCOURAGE TO EXPRESS FEELINGS AND NEEDS. CONTINUE PLAN OF CARE. AND MONITOR FOR SAFETY.
--- NOTE | 2017-02-18 22:51 | NUR ---
ATIVAN 0.5 MG PO GIVEN FOR INCRESES AGITATION AND ANXIETY ABOUT BEING HERE, AND HER FAMILY NOT KNOWING WHERE SHE IS.
--- NOTE | 2017-02-19 04:00 | NUR ---
ASKED TO GO TO BATHROOM. ASSITED IN W/C AND PATIENT VOIDED MODERATE AMOUNT.
[2017-02-19 07:35] VITALS: BP 113/78
[2017-02-19 11:38] VITALS: BP 113/78
[2017-02-19 11:40] VITALS: BP 113/78
--- NOTE | 2017-02-19 18:22 | NUR ---
PT IS RECEIVED SITTING IN WHEEL CHAIR IN FRONT OF NURSE STATION. PT IS ALERT AND ORIENTED TO SELF ONLY. PT IS VERY ANXIOUS AND CONFUSED. SHE REPEATEDLY ASK "WHERE SHE IS", "WHAT IS SHE SUPPOSED TO BE DOING", DO I KNOW WHERE [place] IS. PT'S DAUGHTER HALLIE DID COME FOR VISITAION AND PT RESPONDED VERY WELL. PT WAS TEARFUL AT TIMES DURING THE DAY PRIOR TO VISITATION. SHE HAS REMAINED CALM SINCE VISITATION TODAY. NO HALLUCINATIONS HAVE BEEN NOTED. PT IS DELUSIONAL AT TIMES AND IS LOST WITH TIME. SHE WAS SAYING THAT SHE NEEDED TO GET TO HER MOM AND DAD'S AND THAT THEY WERE ALL ALONE. PT LATER SAID "MOM AND DAD ARE GOING TO BE LOOKING FOR ME". PT HAS BEEN COOPERATIVE WITH STAFF AND HAS BEEN COMPLIANT WITH MED'S AND CARE. NO AGGRESSION NOTED. SAFETY MEASURES ARE IMPLEMENTED. WILL CONTINUE TO MONITOR.
[2017-02-19 19:30] VITALS: BP 121/81
[2017-02-19 21:00] VITALS: BP 121/81
--- NOTE | 2017-02-19 22:42 | NUR ---
Mrs. Eller had bedside hemodialysis today via her right chest Hemosplit from 1928 unil 2228. Average blood flow was 350 mls/minute. Net fluid removed was 1500 mls. Post vitals were: B/P: 140/89, HR: 99, Temp: 97.7, Resps: 18. Noo problems.
--- NOTE | 2017-02-20 02:53 | NUR ---
B) Recieved patient in day room in wheel chair, alert and oriented to self, calm and cooperative I) Administered perscribed medications after dialysis treatment R) Medication compliant resting now quietly in bed, P) Continue plan of care.
--- NOTE | 2017-02-20 12:53 | NUR ---
Patient is lying on side on geomat, in a recliner. Patient has hallucinated that nurse is "Yolanda". She has to be fed and will only eat only a little bit and than says "That's enough" and refuses to eat. Patient was reoriented. She is compliant with medication and quieted down. However, she refuses to agree that she is in the hospital and say's "yeah, right". Continue to monitor, continue plan of care.
--- NOTE | 2017-02-20 14:09 | NUR ---
Patient in dayroom yelling at people randomly. She demands to know "who are you?" She is delusional and thinks she is in her home. Patient calls staff and peers derogatory names for no reason refusing redirection. She is combative and hits at the air saying"I'm so angry!" When asked what she is angry about she says "everthing". She says she is being made a fool of. Cursing and talking about "the whole damn family". Continue to monitor.
--- NOTE | 2017-02-20 14:22 | PSY ---
PATIENT NAME:MARY SNEED MEDICAL RECORD: [id number] : 34 LOCATION:[facility] ADMISSION DATE: 02/18/17 ACCOUNT: [id number] PSYCHIATRIC EVALUATION DATE OF EVALUATION: 02/18/17 Initial Psychiatric Workup IDENTIFYING DATA: First [facility] admission for this 86-year-old white female. HISTORY OF PRESENT ILLNESS: This patient was admitted to the rehab floor on 02/02/2017. At that time, she had a femoral neck fracture that had been surgically repaired. She was admitted for strengthening and gait training. The patient, however, after admission, began to exhibit very clear-cut symptoms of delirium. She had been quite agitated especially at night, calling for help and exhibiting severe disorientation. The nursing staff had to keep her close to the nurse's station for safety. She was seen in consultation on 02/14/2017. At that point, the patient had previously been started on Seroquel 25 mg h.s. She was later changed to Geodon for better behavioral control. History obtained at that time indicated that the patient had a previous diagnosis of vascular dementia. She had been treated by her primary care, but did not have any previous inpatient psychiatric admission. PAST MEDICAL HISTORY: Significant for end-stage renal disease. The patient has been on hemodialysis for 3 years. As mentioned, the patient had surgical repair of a right femoral neck fracture. OTHER ONGOING COMORBIDITIES: Include previous history of [place], coronary artery disease and colon cancer. FAMILY HISTORY: Noncontributory. SOCIAL HISTORY: The patient had been living at home with her . Evidently, they did have some form of in-home care. Evidently, the is also debilitated. ALLERGIES: No known allergies. MENTAL STATUS: On interview, the patient is pleasant, but remains somewhat confused. She is oriented to person and the fact that she is hospitalized, she is not correctly oriented as to date. Mood is, for the most part, euthymic. Affect is rather shallow. Speech tends to be tangential. Otherwise, memory shows deficits for intermediate and short-term events as well as concentration. DIAGNOSTIC IMPRESSION: AXIS I: Vascular dementia. AXIS II: No diagnosis. AXIS III: Status post right hip fracture, coronary artery disease, hypertension, gastroesophageal reflux disease, and hypercholesterolemia. AXIS IV: Moderate. AXIS V: 36. PLAN: The patient will be admitted for further psychiatric workup to the [facility] unit. TRANSINT:[id number] Voice Confirmation ID: [id number] DOCUMENT ID: [id number] TIFFANY CHEUNG III, MD at 1422 CC: [id number] DICTATION DATE: 02/18/17 1128 FLOWERS SALESPERSON: 02/18/17 1151 ADM IN [facility] [address] [place] [address]
[2017-02-20 19:30] VITALS: BP 107/77
--- NOTE | 2017-02-20 22:47 | NUR ---
RECEIVED IN DINING AREA. SITTING IN WHEELCHAIR. NOT SOCIALIZING WITH PEERS. CALM AND COOPERATIVE WITH CARE AND ASSESSMENTS. ENCOURAGE TO EXPRESS NEEDS. RESTING EYES CLOSED AT THIS TIME. CONTINUE PLAN OF CARE
[2017-02-21 10:04] VITALS: BP 111/65
--- NOTE | 2017-02-21 11:07 | NUR ---
B.) Received this am, alert and oriented to name only, has no orientation to place " I want to go back to [place], what has Yolanda done.' I.) Administer medications and monitor compliance. Redirect and reorient as need. Monitor safety and encourage compliance with unit program. R.) Compliant with medications, No evidence of reorientation to place and situation. Verbalized she is angry does'nt want to be here and doesn't know why she is here, oriented to situation, required reineration of reason for hospitalization and encouragement for patient to cooperate with unit milieu and physical therapy this am, observed group and one on one provided to allow patient to vent and educate on reason for hospitalization. Improved mood after one on one. No aggression or inappropriate behavior. P.) Continue plan of care.
[2017-02-21 11:13] LABS: VITAMIN D 25 HYDROXY 38.5 ng/mL (30.0-100.0)
[2017-02-21 12:12] LABS: FOLATE (FOLIC ACID) - SERUM 15.1 ng/mL (>3.0)
--- NOTE | 2017-02-21 19:52 | NUR ---
RECEIVED IN BEDROOM. LAYING IN BED WITH EYES CLOSED. RESPONDS TO TOUCH. CALM AND COOPERATIVE WITH CARE AND ASSESSMENT. ENCOURAGE TO EXPRESS NEEDS. CONTINUES TO REST IN BED WITH EYES CLOSED. CONTINUE PLAN OF CARE
[2017-02-21 23:31] VITALS: BP 117/54
[2017-02-22 03:09] LABS: RAPID PLASMA REAGIN Non Reactive (Non Reactive)
[2017-02-22 10:14] VITALS: BP 144/72
--- NOTE | 2017-02-22 10:43 | PN ---
PATIENT:MARY SNEED MEDICAL RECORD: [id number] LOCATION:[facility] ADMISSION DATE: 02/18/17 PROGRESS NOTE DATE OF SERVICE: 02/21/2017 SUBJECTIVE: No new complaint. OBJECTIVE: The patient had begun to show some aggressiveness over the weekend. Geodon was restarted at 20 mg daily. On exam today, the patient's mood is irritable. Affect is brittle. Speech is tangential. Content of thought is positive for nonspecific paranoid ideation. Sensorium is unchanged. ASSESSMENT: No change in diagnosis. PLAN: 1. Continue current treatment plan. 2. We will add p.r.n. Ativan 0.5 mg every 4 hours as needed. 3. Continue supportive therapy. TRANSINT:[id number] Voice Confirmation ID: [id number] DOCUMENT ID: [id number] TIFFANY CHEUNG III, MD at 1043 CC: [id number] DICTATION DATE: 02/21/17 1139 SERVER SUPPORT TECHNICIAN: 02/21/172033 ADM IN [place] [id number] [place] [id number]
[2017-02-22 11:05] LABS: BASOPHILS 0.2 % (0-2); EOSINOPHILS 0.5 % (0-7); HEMATOCRIT 22.6 % (36.0-48.0); IMMATURE GRANULOCYTES 0.5 % (0-5); LYMPHOCYTES 10.5 % (15-50); MCH 31.6 pg (26.0-34.0); MCHC 32.7 g/dL (31.0-37.0); MCV 96.6 fL (80.0-100.0); MEAN PLATELET VOLUME 9.2 fL (7.4-10.4); NEUTROPHILS 79.3 % (40-80); PLATELET COUNT 477 10x3/uL (130-400); RBC 2.34 10x6/uL (4.00-5.40); RDW 13.6 % (11.5-14.5); WBC 6.6 10x3/uL (4.8-10.8)
[2017-02-22 11:13] LABS: HEMOGLOBIN 7.4 g/dL (12-16)
[2017-02-22 11:38] LABS: ALBUMIN 2.4 g/dL (3.4-5.0); BILIRUBIN - TOTAL 0.29 mg/dL (0.2-1.3); CALCIUM 8.7 mg/dL (8.5-10.1); CARBON DIOXIDE 28.6 mmol/L (21.0-32.0); CREATININE - SERUM 2.4 mg/dL (0.6-1.3); MAGNESIUM - SERUM 2.1 mg/dL (1.8-2.4); PROTEIN - SERUM 6.3 g/dL (6.4-8.2)
[2017-02-22 11:44] LABS: ANION GAP 14.4 mmol/L (8-16)
--- NOTE | 2017-02-22 11:55 | NUR ---
Received report from nurse Glendy Escobar that lab reported critical hgb of 7.4. Contacted Dr. Patiño and reported critical lab. Orders received to transfuse 2 Units of PRBC today.
--- NOTE | 2017-02-22 12:10 | NUR ---
Reviewed patient admit history, noted has had previous transfusions with no reactions. Contacted patient LIGIA Boo, informed her of patient critical lab hgb, and received consent for 2 Units of PRBC, verbalized yes to consenting to transfuse blood and states patient has had blood in past with no complications. Verbalized understanding of transfusion and associated risk.
[2017-02-22 13:52] VITALS: Ht 162.6 cm; Wt 28.1 kg
--- NOTE | 2017-02-22 18:11 | NUR ---
Received this am alert and oriented to name, patient angry and yelling at staff not wanting to get up for unit routine and ADL, " yall are just holding me here, I want to go home." Agitated and is tearful at times, initialy refuses all care and medications, requires one on one intervention and time to express her anger before she will comply with plan of care. Compliant with medications. Received dialysis this am. critial hgb with orders for 2 Units of PRBC, dialysis completed and perceptor to come assist with blood transfusion, this nurse sited periperhal IV to right forearm, flushes without compliacations and return blood. Preceptor arrived to assist with blood transfusion. Patient is a dialysis patient requirement further orders and instruction per Gymnasium Teacher. Paged DR. Rodriguez at [phone], return call from MYA Bosch APN at [phone] orders received to infuse one unit tonight and they will infuse other unit on during her dialysis. Iv site right forearm remains intact. Patient has been instructed on blood transfusion and POA has been informed and instructed earlier today. Blood to be infused tonight.
[2017-02-22 19:29] VITALS: BP 120/70
--- NOTE | 2017-02-22 20:20 | NUR ---
RECEIVED IN BEDROOM. TRANFUSING ONE UNIT OF BLOOD. NEGATIVE ABOUT HER CARE BUT IS COOPERATIVE. NO SIGNS OF DISTRESS. STATES SHE FEELS WITH NO PAIN. VITALS REMAIN STABLE. CONTINUE TO TRANSFUSE ONE UNIT OF BLOOD.. PATIENT REMAINS IN BED WITH EYES CLOSED. RESPONDING TO VOICE. CONTINUE PLAN OF CARE
--- NOTE | 2017-02-23 08:00 | NUR ---
B) Rec'd pt in dining room for b'fast, alert, oriented to person,. I) Admin meds per orders, monitor effectiveness, enocurage participation in group therapy. R) No s/s adverse reaction to meds. Participates in group discussion with other patients and staff. P) Cont current plan of care including meds and group discussion.
[2017-02-23 08:30] VITALS: BP 108/65
--- NOTE | 2017-02-23 09:47 | PN ---
PATIENT:MARY SNEED MEDICAL RECORD: [id number] LOCATION:[facility] ADMISSION DATE: 02/18/17 PROGRESS NOTE DATE OF SERVICE: 02/22/2017 SUBJECTIVE: "Who put me here?" OBJECTIVE: The patient has shown much more affective lability and anger over the last 24 hours. She has been noncompliant from time to time. She is challenging towards staff and repeatedly wants to know why she is in the hospital. She has continued to exhibit paranoid delusional ideation as well as disorientation. On exam, the patient is receiving dialysis. Mood is angry. Affect is brittle. Speech is somewhat tangential. Content of thought is positive for paranoid ideation. Sensorium shows no change. ASSESSMENT: No change in diagnosis. PLAN: 1. Due to decreased appetite, we will add Megace suspension 200 mg b.i.d. 2. Continue other medications. 3. Continue supportive therapy. TRANSINT:[id number] Voice Confirmation ID: [id number] DOCUMENT ID: [id number] TIFFANY CHEUNG III, MD at 0947 CC: [id number] DICTATION DATE: 02/22/17 1206 GEOTHERMAL OPERATIONS ENGINEER: 02/22/174 ADM IN [facility] [address] [place] [address]
--- NOTE | 2017-02-23 16:03 | NUR ---
Patient has been of pleasant disposition but is very confused. She keeps thinking she is at a dialysis clinic, as soon as she is reoriented she asks again about calling the car to come pick her up. Continue to monitor
[2017-02-23 18:46] LABS: BASOPHILS 0.1 % (0-2); EOSINOPHILS 0.3 % (0-7); IMMATURE GRANULOCYTES 0.4 % (0-5); LYMPHOCYTES 11.5 % (15-50); MCH 30.3 pg (26.0-34.0); MCHC 32.6 g/dL (31.0-37.0); MEAN PLATELET VOLUME 9.5 fL (7.4-10.4); NEUTROPHILS 79.7 % (40-80); PLATELET COUNT 449 10x3/uL (130-400); RDW 15.4 % (11.5-14.5); WBC 7.7 10x3/uL (4.8-10.8)
[2017-02-23 18:47] LABS: HEMATOCRIT 31.6 % (36.0-48.0); HEMOGLOBIN 10.3 g/dL (12-16); MCV 92.9 fL (80.0-100.0)
[2017-02-23 20:16] VITALS: BP 106/45
--- NOTE | 2017-02-24 00:39 | NUR ---
B) Recieved patient in the day room self propelling in wheelchair, alert and oriented to self, confused to place and situation, cooperative with care and assessment, I) Administered perscribed medications, monitored for falls and safety, R) Medication compliant, resting now quietly, P) Continue plan of care.
--- NOTE | 2017-02-24 08:51 | NUR ---
PATIENT HAS TAKEN OFF HER BLLOD BAND, UNABLE TO ID PATIENT WITH BLOOD, HCT 10.3. CALLED APARNA SMITH APN TO SEE IF SHE STILL WANTS THE BLOOD TO BE INFUSED. SHE SAID "NO, NOT AT THIS TIME". CALLED THE BLOOD BANK AND LET THEM BE AWARE OF NURSE PRACTITIONERS DECISION.
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
--- NOTE | 2017-02-24 10:35 | PN ---
PATIENT:MARY SNEED MEDICAL RECORD: [id number] LOCATION:[facility] ADMISSION DATE: 02/18/17 PROGRESS NOTE DATE OF SERVICE: 02/23/2017 SUBJECTIVE: No new complaint. OBJECTIVE: The patient is much more pleasant. She has been much more cooperative with staff. She is tolerating medications well. On exam, mood is euthymic. Affect is bland. Speech is terse. Content of thought is negative for overt psychosis. Sensorium is unchanged. ASSESSMENT: No change in diagnosis. PLAN: 1. Maintain current medication regimen. 2. Continue supportive therapy. TRANSINT:[id number] Voice Confirmation ID: [id number] DOCUMENT ID: [id number] TIFFANY CHEUNG III, MD at 1035 CC: [id number] DICTATION DATE: 02/23/17 1048 CONDITIONER TENDER: 02/23/172037 ADM IN [id number] [place] [address]
--- NOTE | 2017-02-24 14:38 | NUR ---
B) PATIENT IS SPEAKING AND PRAYING TO GOD AFTER DIALYSIS, SHE KEEPS SAYING SHE IS SORRY FOR LEAVING ANYONE OUT. SHE IS GOING FROM ANXIOUS TO CALM, SAYINE PRAYERS. I) PROVIDE PRESCRIBED MEDS AND REDIRECT NEEDED. R) PATIENT IS COMPLIANT WITH MEDS, SHE REMAINS CONFUSED, ORIENTED TO SELF ONLY. P) CONTINUE PLAN OF CARE.
[2017-02-24 15:26] LABS: ALP - ISO (ALP) 107 IU/L (39-117); ALP - ISO (BONE) FRACTION 62 % (14-68); ALP - ISO (LIVER) FRACTION 38 % (18-85); ALP - ISO(INTESTINAL) FRACTION 0 % (0-18)
--- NOTE | 2017-02-24 20:00 | NUR ---
RECEIVED IN DAYROOM SITTING IN RECLINER, CONTINUES TO PRAY OUT LOUD. SHE IS CALM AND COOPERATIVE WITH ASSESSMENT AND MEDS. REDIRECT AND REORIENT NEEDED. CONTINUES TO SIT QUIETLY ION CHAIR. CONTINUE PLAN OF CARE.
[2017-02-24 21:12] VITALS: BP 142/57
[2017-02-25 09:35] VITALS: BP 118/76
--- NOTE | 2017-02-25 12:00 | NUR ---
B) PATIENT IS AWAKE AND ALERT, SHE IS SAYING SHE JUST WANTS TO GO THEN SHE BEGAN STARING OUT INTO SPACE. PATIENT IS IN A W/C AND SHE HAS TO HAVE STAFF ASSIST TO TRANSFER. I) IN STAFFING DISCUSSED WITH PSYCHIATRIST ABOUT D/C TODAY OR TOMORROW PATIENT SAYS SHE WANTS TO GO HOME. R) PATIENT IS COMPLIANT WITH MEDS AND UNIT MILIEU. P) CONTINUE PLAN OF CARE.
[2017-02-25] MEDS ORDERED: NAMENDA5 MG PO (12:39)
[2017-02-25] MEDS ORDERED: MEGACE400 MG/10 PO (12:39)
[2017-02-25] MEDS ORDERED: GEODON20 MG PO (12:40)
[2017-02-25 19:30] VITALS: BP 116/83
--- NOTE | 2017-02-25 20:00 | NUR ---
RECEIVED IN DAYROOM SITTING IN W/C WATCHING TV WITH PEERS. ALERT AND PLEASANT MOOD. CALM AND COOPERATIVE WITH ASSESSMENT AND CARE. VSS. COMPLIANT WITH PRESCRIBED MEDICATIONS. REDIRECT AND REORIENT NEEDED. MONITOR FOR FALL SAFETY. CONTINUE CURRENT PLAN OF CARE.
--- NOTE | 2017-02-26 09:00 | NUR ---
B) PATIENT IS ALERT THIS MORNING AND SHE IS TALKING TO STAFF, INTERACTING, DID LET HER KNOW SHE IS GOING HOME TODAY AND SHE IS HAPPY TO KNOW THAT. PATIENT IS IN A W/C SHE DOES DRINK ENSURE, BUT DOES NOT EAT WELL. I) DID FAX D/C ORDERS AND MED REC TO HOSPICE. PROVIDE PRESCRIBED MEDS. R) PATIENT IS COMPLIANT WITH MEDS. P) CONTINUE WITH D/C PLAN.
--- NOTE | 2017-02-26 10:25 | NUR ---
CALLED DIALYSIS, BUT NO ANSWER. WAS GOING TO LET THEM KNOW PATIENT IS D/CING FROM HOSPITAL BY 1030 OR 1100.
--- NOTE | 2017-02-26 10:41 | NUR ---
LATE ENTRY FROM 02/24 SW MET WITH PT'S POA TO DISCUSS DISCHARGE PLANS. HALLIE VERBALIZED UNDERSTANDING OF PT'S CONDITION AND REFERRAL TO HOSPICE. HALLIE STATED SHE WAS GRATEFUL FOR SERVICES AND CARE HER AUNT HAS WHILE ON THE UNIT.
--- NOTE | 2017-02-26 10:55 | NUR ---
CALLED REPORT TO MARINA AT HOSPICE.
--- NOTE | 2017-02-26 11:00 | NUR ---
D/C'D SALINE LOCK ON LEFT FOREARM, CATHETER INTACT.
--- NOTE | 2017-02-26 11:15 | NUR ---
PATIENT D/C'D WITH HALLIE STRONG TO GO HOME IN [place]. ALL BELONGINGS PACKED AND READY TO GO.
--- NOTE | 2017-02-28 09:54 | PN ---
PATIENT:MARY SNEED MEDICAL RECORD: [id number] LOCATION:[facility] ADMISSION DATE: 02/18/17 PROGRESS NOTE DATE OF SERVICE: 02/25/2017 SUBJECTIVE: The patient's case was discussed with staff. She has no new complaint. OBJECTIVE: The patient is disorganized and disruptive. She has a very advanced dementia and is not eating adequately. ASSESSMENT: No change in diagnoses. PLAN: The patient is going to be discharged from the hospital today. Plan that was just worked out prior to me taking over her care today from Dr. Hilton was that she would go to [place] and be admitted to hospice. Based upon my assessment of the situation, I think that is a reasonable and appropriate course for this very advanced case of dementia. TRANSINT:[id number] Voice Confirmation ID: [id number] DOCUMENT ID: [id number] PATSY LUNA MD at 0954 CC: [id number] DICTATION DATE: 02/25/17 1237 FRAUD PREVENTION ANALYST: 02/26/17 0027 DIS IN 02/26/17 [id number] [place] [address]
--- NOTE | 2017-02-28 09:57 | PN ---
PATIENT:MARY SNEED MEDICAL RECORD: [id number] LOCATION:[facility] ADMISSION DATE: 02/18/17 PROGRESS NOTE DATE OF SERVICE: 02/24/2017 SUBJECTIVE: No new complaint. OBJECTIVE: The patient is continuing to do fairly well. Case management is working with family regarding discharge plans. On exam, mood is for the most part euthymic. Affect is rather shallow. Speech is tangential. Content of thought is unchanged. Sensorium is unchanged. ASSESSMENT: No change in diagnosis. PLAN: 1. Continue all current medications. 2. Continue supportive therapy. TRANSINT:[id number] Voice Confirmation ID: [id number] DOCUMENT ID: [id number] TIFFANY CHEUNG III, MD at 0957 CC: [id number] DICTATION DATE: 02/24/17 1212 FIRST COAT SANDER: 02/25/17 0038 DIS IN 02/26/17 [facility] [address] [place] [address]
== END 2017-02-26 11:20 | disposition home health service (06) | DRG 884 ==
LOC: D.PSYCH 11:18
PROVIDERS: Family Medicine; Internal Medicine; ADMIT Psychiatry & Neurology Psychiatry
DX: F03.91 Unspecified dementia, unspecified severity, with behavioral disturbance (principal); N18.6 End stage renal disease; F05 Delirium due to known physiological condition; I12.0 Hypertensive chronic kidney disease with stage 5 chronic kidney disease or end stage renal disease; Z99.2 Dependence on renal dialysis; I25.10 Atherosclerotic heart disease of native coronary artery without angina pectoris; E78.5 Hyperlipidemia, unspecified; R26.9 Unspecified abnormalities of gait and mobility; K21.9 Gastro-esophageal reflux disease without esophagitis; K59.00 Constipation, unspecified; D63.1 Anemia in chronic kidney disease